=== PATIENT | female | born 1955 | race Caucasian/White ===

== ENCOUNTER 2020-07-30 06:54 | Outpatient (CLI) | payer MEDICARE, SELFPAY ==
--- NOTE | 2020-07-30 07:22 | ECG_ITS ---
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 Baseline heart rate was 118 beats per minute. Baseline blood pressure was 187/111 millimeters of mercury. Target heart rate was 154 beats per minute. Maximum heart rate achieved was 161, which was 104 % of the target heart rate. Maximum blood pressure was 222/120 millimeters of mercury. Total exercise time was 4 minutes. Maximum METs achieved was 7, maximum VO2 was 24.5. The reason for ending the test was maximum effort achieved. The patient complained of shortness of breath during the stress test, which then resolved at the end of the test. ELECTROCARDIOGRAM: BASELINE: Showed sinus tachycardia, normal axis, no significant ST-T changes at the baseline noted. EXERCISE: At the peak exercise level, no significant ST-T changes suggestive of ischemia noted. RECOVERY: During the recovery period, heart rate dropped appropriately. No significant ST-T changes in the recovery suggestive of ischemia noted. CONCLUSION: 1. Exercise capacity poor. 2. Heart rate response was tachycardic. 3. Blood pressure response was hypertensive. 4. Symptoms not suggestive of ischemia. 5. Electrocardiogram portion of the stress test was not suggestive of ischemia. 6. Nuclear scan will be documented separately. Electronically Signed On 07-31-2020 15:48:00 BEEF GRINDER by TASIA AVILA [id number]
--- NOTE | 2020-07-30 07:23 | NMCV_ITS ---
NM pierce perf SPECT r/s* [id number] Michelle Leon Age: 64 Gender: F : 1955 Exam Date: 07/30/2020 08:08 Ordering Phys: Poornima Salazar MD Technologist: CHANELLE Mosqueda Exam Location: [facility] Indications: CHEST PAIN STRESS TEST Please see separate stress test report in [facility] for full findings IMAGE PROTOCOL Rest/Stress 1 Exercise Day Radiopharmaceutical Dose (mCi) Administration Site Administered by Rest: Tc-99m 10.7 IV CHANELLE Nicole Sestamibi Stress:Tc-99m 32.7 IV CHANELLE Mosqueda Sestamibi Rest: 30-Jul-2020 60 Discovery 630 Stress: 30-Jul-2020 15 Discovery 630 Radiopharmaceutical was injected at 98 % maximum heart rate. Images obtained in supine and prone position. SPECT RESULTS Technical Quality: Excellent Raw Data Analysis: Normal Image Corrections: No attenuation or motion correction applied Summed Stress Score: 17 Summed Rest Score: 7 Summed Difference Score: 10 PERFUSION FINDINGS Large area of patchy reduced tracer uptake noted in basal to distal inferior, inferoseptal and mid to distal anterior wall on both rest and stress images surrounded by medium-sized area of severe reversibility in mid to distal anterior and distal inferoapical wall suggestive of ischemia. FUNCTIONAL RESULTS (calculated via Gated SPECT) Stress Image LV EF (%): 57 Stress EDV (mL):68 TID: 1.16 Stress ESV (mL):29 Rest Image LV EF (%): 57 FUNCTIONAL FINDINGS: Mid to distal anterior apical and septal wall akinesis IMPRESSIONS Medium-sized area of severe ischemia noted in mid to distal anterior and anteroseptal wall suggestive of possible lesion in mid LAD territory.TID ratio is elevated which could be secondary to left ventricle hypertrophy/subendocardial ischemia however multivessel coronary artery disease is a possibility. EKG segment will be documented separately. Result conveyed to Dr. Poornima Salazar. Jose A Singh MD (Electronically Signed) Final Date: 30 July 2020 19:19 S
[2020-07-30 07:25] VITALS: BMI 19.1
[2020-07-30 09:57] VITALS: BP 180/118; PULSE 106
== END 2020-07-30 06:55 | disposition home or self-care (01) ==
PROVIDERS: PCP Family Medicine; Visit Provider Family Medicine
DX: R07.9 Chest pain, unspecified (principal); I25.9 Chronic ischemic heart disease, unspecified
CPT/HCPCS: 78452; 93017; A9500

== ENCOUNTER → 2020-08-06 14:16 | Outpatient (BNVA) | payer MEDICARE, SELFPAY | PROVIDERS: PCP Family Medicine; Visit Provider Internal Medicine Cardiovascular Disease | DX: I10 Essential (primary) hypertension (principal); Z01.812 Encounter for preprocedural laboratory examination | CPT/HCPCS: 80048; 85025; 85610; 87635 ==

== ENCOUNTER 2020-08-12 12:57 | Inpatient (IN) | payer MEDICARE, SELFPAY ==
--- NOTE | 2020-08-11 09:55 | PC.NURSE ---
pt states she quite taking isosorbide mononitrate after a severe headache per dr orders.
--- NOTE | 2020-08-11 10:43 | PC.NURSE ---
verbal order to infuse 300mls prior to procedure.
[2020-08-11 10:44] VITALS: BMI 18.8
[2020-08-12] VITALS (24 sets, daily range): BP systolic 136–198; BP diastolic 77–115; PULSE 65–88; RESP 3–23; TEMP 36.6; O2SAT 94–100
--- NOTE | 2020-08-12 07:30 | XACV_ITS ---
Ht: 165 cm Wt: 51 kg BSA: 1.53 m2 Gender: Female : 1955 Exam Priority: Routine Procedure(s): Procedure Description: Diagnostic procedure Procedure Description: Left Heart Catheterization Procedure Description: Left ventriculography Diagnostic Cath Status: Elective Diagnostic Findings * LM has 0% stenosis. * RCA has 0% stenosis. * pLAD to mLAD: Severe 95% stenosis, JADYN: 2 flow. * 1st Diag: Severe 90% stenosis, JADYN: 3 flow. * mCIRC to dCIRC: Mild 30% stenosis, JADYN: 3 flow. * Ramus: Moderate 70% stenosis, JADYN: 3 flow. * Coronary angiography shows left dominance. Conclusions 1. There is severe coronary artery disease with three vessel disease. 2. The apex, mid posterior, mid septum, anterolateral, mid inferior goncalves are hypokinetic. 3. All other visualized goncalves normal. 4. Mildly depressed left ventricular systolic function. Ejection fraction of 50%. Recommendations * 1-Return to ICU for close monitoring and routine PCI care 2-Start IV heparin drip as per ACS protocol 3-No P2y12 inhibitor for possible CABG 4-Statin with LDL goal of 70 mg/dl, aspirin 81 mg p.o. daily for life long 5-CT surgery consults for CABG 6-Optimal medical management for severe CAD 7-Follow up with Dr. Singh in four weeks and primary care physician as scheduled. Diagnostic RX Recommendation: CABG LV EDP: 21 mmHg Ventriculography Ejection Fraction: 50.0 % Left Ventriculography Findings: * Mildly depressed LV function 50%. Pressures Phase:Rest AO : 135 / 84 ( 105 ) @ 3:10:00 AM 134 / 74 ( 103 ) @ 3:10:00 AM 158 / 89 ( 121 ) @ 3:21:00 AM 157 / 89 ( 121 ) @ 3:21:00 AM LV : 136 / -17 / @ 3:10:00 AM 138 / -15 / @ 3:10:00 AM 141 / 2 / @ 3:20:00 AM 142 / 1 / @ 3:20:00 AM 161 / -4 / @ 3:21:00 AM 159 / -5 / @ 3:21:00 AM Valves Phase:DefaultPhase AV : 1.0 @ 9:29:42 AM 1.0 @ 9:29:42 AM AV Mean Gradient: 0.0 @ 9:29:42 AM Clinical Evaluation EBL: 5mL-10mL Procedural Details Procedure Consent Obtained. Admit Source: Out Patient. Pre-Procedure Time Out. Identified patient by full name and date of as verbalized by the patient/guarantor. Does the consent match the physician's order: Yes. Accurate & Complete Informed Consent: Yes. Inpatient/Outpatient History & Physical on Chart: Yes. If H&P is completed, is and addenduem needed: N/A; If yes, is the addendum complete: N/A. Visualize and Verify Site with Patient/Guarantor: N/A. Relevant Radiology Images available: N/A. Pre-op teaching completed and patient verbalized understanding. The risks, benefits, and alternatives of sedation and/or procedure were discussed by physician. The patient agrees to continue. Procedure started. Correct patient, site and procedure confirmed by cath team. PERRLA. Strong, equal hand materials handler bilaterally. Lungs clear x 5 lobes. IV Site on Arrival: 20 gauge in the left anticubital. IV Fluids: 0.9% NaCl at KVO. 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 Pre Procedural Pulses: bilateral dorsalis pedis was 3+. Pre Procedural Pulses: bilateral posterior tibial was 2+. Pre Procedural Pulses: bilateral radial was 3+. Oxygen started at 2liters/min via nasal canula. bilateral groins was prepped with chloroprep then draped in the usual sterile fashion. Physician notified. Baseline sample Acquired. HR: 108 BPM. Physician arrived. Physician scrubbed in. Immediate Pre-Procedure Time Out. Correct Patient: Yes; Correct Procedure: Yes; Correct Site: Yes; Correct Patient Position: Yes; Correct Supplies: Yes; Dried Flammable Prep: Yes; Blood Products Available: N/A;. Lidocaine 1% infiltrated to the right radial. Arterial access obtained. A [address] st helenian TIG catheter in over wire. EDP Sample taken: LV 136/-18,6; HR: 75 BPM; SpO2: 97%. Pullback taken: LV 138/-16,7; AO 135/84(105); Mean: 14mmHg, Peak to Peak: 4mmHg, SEP: 6sec/min; HR: 78 BPM; SpO2: 97%. Multiple views taken of left coronary artery. Catheter redirected to the RCA. Multiple views taken of right coronary artery. Catheter out. Dr. Solano notified per Dr. Singh. A [address] st helenian Angled Pig catheter in over wire. EDP Sample taken: LV 141/2,21; HR: 76 BPM; SpO2: 97%. LV EDP: 21. LV gram performed in GHOTRA @ 10 mL/second for a total of 30 mL. EDP Sample taken: LV 161/-5,21; HR: 83 BPM; SpO2: 98%. Pullback taken: LV 159/-6,21; AO 158/89(121); Mean: 0mmHg, Peak to Peak: 1mmHg, SEP: 21sec/min; HR: 80 BPM; SpO2: 98%. TR band placed. Hemostasis obtained. Post Procedure: Pulses reassessed and unchanged. PERRLA. Strong, equal hand materials handler bilaterally. No VTE prophylaxis required. Medication's Wasted: Heparin = 1000 units. Medication's Wasted: Lidocaine 1% = 16 mL. Medication's Wasted: Nitro = 49.8 mg. Medication's Wasted: Other = fentanyl 50 mg. Total IV fluids: 75 mL. Contrast type used: Omnipaque 300 mgI/mL, 500 mL bottle. Contrast Material : Omnipaque 94 ml. A TR Band was successful obtaining hemostatsis at the Right Radial artery insertion site. Complications: none. [facility] Clinical Fraility Score: 3: Managing Well. 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 Chest Pain Symptom Assessment: Typical Angina Symptoms. Cardiovascular Instability: No,. Post-op diagnosis: severe multivessel CAD. Estimated blood loss: 5mL-10mL. Procedure completed. Patient transferred by wheelchair to ICU. Vital chart was stopped. Access Site Site: Right Radial artery Sheath Size: 6 Fr Hemostasis Method: TR Band Hemostasis Success: Successful Procedure Medications Start: 8:56 AM Stop: 8:56 AM Medication: Versed Amount: 1 mg Route: I.V. Start: 8:56 AM Stop: 8:56 AM Medication: Fentanyl Amount: 50 mcg Route: I.V. Start: 9:07 AM Stop: 9:07 AM Medication: Nitrogylcerin Amount: 200 mcg Route: I.A. Start: 9:09 AM Stop: 9:09 AM Medication: Heparin Amount: 5000 units Route: I.V. I, the attending physician, have reviewed and verified all procedure medications. Yes, all medications given per verbal order History/Risk Factors Hypertension: Yes Renal Disease: No Tobacco Use: Never Report Signatures Finalized by Jose A Singh MD on 08/12/2020 10:15 AM
[2020-08-12] MEDS: diphenhydrAMINE 50 mg Capsule PO (08:04)
--- NOTE | 2020-08-12 08:58 | W.PM.OPSUD ---
Surgery/Procedure H&P Update DATE OF PROCEDURE: August 12, 2020 DATE H&P PERFORMED: 08/06/20 H&P UPDATE INFORMATION: I have reviewed H&P completed within last 30 days, I have examined patient prior to procedure and No changes to prior documentation PREOP DIAGNOSIS: Abnormal stress test, chest pain PLANNED PROCEDURE: Operation Date: 08/12/20 08:30 Proposed Procedures p Cardiac Catheterization(Not Applicable) - Jose A Singh MD PATIENT REASSESSED PRIOR TO SEDATION, WITH NO CHANGE NOTED: Yes PHYSICAL EXAM: alert, oriented x 3 and clear to auscultation bilaterally AIRWAY EVAL/ANESTHESIA PLAN: ASA II, Risks, benefits & alternatives of sedation and/or procedure discussed and Patient agrees to continue as planned
--- NOTE | 2020-08-12 10:18 | PM.HP ---
Providers/Chief Complaint Primary Care Provider: Poornima Salazar MD Chief Complaint: cardiac catherization History of Present Illness Michelle Leon is a 64 year old female non-smoker nondiabetic with history of rheumatoid arthritis on prednisone and history of uncontrolled hypertension for worsening of shortness of breath fatigue and exertional chest pain underwent nuclear stress test suggestive of severe ischemia in the LAD territory saw me in the clinic. She was started on beta-wyatt isosorbide mononitrate aspirin and statin. Today she underwent left heart cath suggestive of severe bifurcating proximal LAD disease with JADYN II flow in the LAD while 90% ostial diagonal lesion and moderate size and caliber vessel. She has moderate size and caliber ramus intermedius with proximal 70% stenosis. Left circumflex is moderate size and caliber dominant vessel without significant stenosis. RCA is nondominant and free of disease. Left ventricle end-diastolic pressure was mildly elevated at 21 mmHg. There was no gradient across the aortic valve. Left ventricle function appeared to be mildly depressed 50% with anterior and lateral wall hypokinesis. Due to bifurcating nature of the proximal LAD disease and diagonal branch along with moderate lesion in the proximal ramus CABG would be the best option. Patient has been admitted to stepdown unit with overflow in the ICU. Dr. Solano our CT surgeon will be requested to consult the patient. I have discussed my finding and recommendation with patient and her daughter. Medications/Allergies Home Medications Medication Instructions Recorded Confirmed Last Taken Type amlodipine 2.5 mg tablet 2.5 mg PO DAILY #90 tab 08/06/20 08/12/20 08/12/20 05:00 Rx aspirin 81 mg tablet,delayed 81 mg PO DAILY #90 tab 08/06/20 08/12/20 08/11/20 20:00 Rx release levothyroxine 112 mcg tablet 112 mcg PO DAILY 08/06/20 08/12/20 08/11/20 07:00 History metoprolol succinate 25 mg 12.5 mg PO DAILY #45 tab 08/06/20 08/12/20 08/11/20 05:00 Rx tablet,extended release 24 hr nitroglycerin 0.4 mg sublingual 0.4 mg SUBLINGUAL Q5M PRN #25 tab 08/06/20 08/11/20 Unknown Rx tablet oxycodone-acetaminophen 5 mg-325 1 tab PO Q8H PRN 08/06/20 08/11/20 Unknown History mg tablet prednisone 1 mg tablet 4 mg PO DAILY tab 08/06/20 08/12/20 08/11/20 20:00 History Vitamin D3 50,000 unit PO DAILY 08/11/20 08/12/20 08/12/20 05:00 History Allergies Allergy/AdvReac Type Severity Reaction Status Date / Time clarithromycin [From Biaxin] Allergy unknown Verified 08/04/20 15:44 levofloxacin [From Levaquin] Allergy unknown Verified 08/04/20 15:44 Penicillins Allergy unknown Verified 08/04/20 15:44 Sulfa (Sulfonamide Allergy unknown Verified 08/04/20 15:44 Antibiotics) PFSH Acute PFSH: Medical History Uncontrolled hypertension Family History Sister Rheumatoid arthritis Social History Smoking and tobacco status: never smoked Vitals/I&O/Wt Weight last 48 hrs Weight 113 lb Physical Exam Narrative: EXAM NARRATIVE: GENERAL: Patient is alert, awake and oriented x3. NECK: No jugular vein distension. HEENT: No cyanosis. No icterus. No pallor. HEART: Regular S1 and S2. No murmur, rub or gallop. LUNGS: Clear to auscultate bilaterally. ABDOMEN: Soft, nontender and nondistended. Positive bowel sounds. No guarding, rebound or tenderness. CENTRAL NERVOUS SYSTEM: Grossly nonfocal. EXTREMITIES: Lower extremities without edema bilaterally. Const: COMMON NORMALS: alert Resp: COMMON NORMALS: clear to auscultation bilaterally AUSCULTATION: clear to auscultation bilaterally Neuro: SENSORIUM/ORIENTATION: Yes alert A&P Assessment and plan (1) Coronary arteriosclerosis in [place] artery: As defined above patient has multivessel severe coronary artery disease, we have requested consult for CT surgery. Further plan will be advised. Continue aspirin beta-wyatt nitroglycerin statin and heparin. Echocardiogram will be obtained. Further plan will be advised after Dr. Solano's consult. Status: Acute (2) Uncontrolled hypertension: Currently well controlled. 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
--- NOTE | 2020-08-12 10:54 | USCV_ITS ---
Michelle Leon Age: 64 Gender: F : 1955 Exam Date: 08/12/2020 11:38 Ordering Phys: Oswald Solano MD Technologist: Andie Senior Exam Location: [facility] [place] Indication: CABG pre op RIGHT LEFT LOWER EXTREMITY Diameter Diameter (cm) (cm) 0.26 High Thigh 0.28 0.28 Mid Thigh 0.21 0.23 Above Knee 0.22 0.25 Below Knee 0.21 0.08 Mid Calf 0.13 0.10 Ankle 0.23 RIGHT LEFT Findings Good straight veins for harvest bilat Veins are easily compressible No evidence of thrombosis Conclusions Patent veins bilaterally with no evidence of thrombosis. Relatively small caliber veins bilaterally. The greater saphenous veins measured anywhere from 0.21 to 0.28 cm bilaterally at the above-knee levels. The dimensions as mentioned above Dr Francisco Vasquez MD [facility] (Electronically Signed) Final Date: 13 August 2020 09:17 S
--- NOTE | 2020-08-12 10:59 | P.CONIM_ITS ---
Providers/Reason For Consult Consulting Physican/Specialty*: Dr. Solano, cardiothoracic surgery Reason for Consult*: Severe two-vessel coronary artery disease Requesting Physcian: Dr. Singh Attending Physician: Jose A Singh MD Primary Care Provider: Poornima Salazar MD History of Present Illness History of Present Illness Michelle Leon is a 64 year old female whom I have been consulted on by Dr. Singh, having just completed left heart catheterization for suspected coronary artery disease. She had been referred to Dr. Singh from her primary care provider, Dr. Poornima Salazar with a progressive history of substernal chest d iscomfort associate with exertion, highly suggestive of coronary ischemia and angina. Dr. Singh saw her originally in consultation on August 06. She completed her sestamibi stress study on July 30. The study revealed poor exercise capacity. Nuclear images returned severely positive in the LAD distribution. She is also noted to be hypertensive and evaluation by Dr. Singh. No history for tobacco use. She has had rheumatoid arthritis for nearly a decade. Currently is on 4 mg of prednisone daily, having originally been on 5 mg. This is managed by her personal physician, Dr. Poornima Salazar. Left heart catheterization performed earlier today by Dr. Singh revealed a complex bifurcating LAD lesion as well as proximal lesion of the ramus intermedius branch. Noncritical disease of the proximal circumflex artery and nonocclusive disease of the RCA. Mildly depressed LV function at 50% with anterior lateral wall hypokinesia. Due to the complexity of the LAD lesion, Dr. Singh feels that she should be evaluated to consider surgical revascularization. Past history significant for rheumatoid arthritis and she is on prednisone, 4 mg daily. She also has uncontrolled hypertension. She has been started on a beta- wyatt as well as aspirin and statin. She has several allergies including clarithromycin, levofloxacin, penicillins, and sulfa. I have conferred with my colleague, Dr. Singh by phone. I have personally reviewed the left heart catheterization and echocardiographic studies. Bilateral lower extremity greater saphenous vein mapping has been performed with results pending. Review of Systems Const: Reports: fatigue; Denies: fever(s), chills, change in appetite, change in weight or night sweats Eyes: Denies: change in vision or blurry vision ENMT: Denies: odynophagia or hoarseness Card: Reports: chest pain, palpitations and dyspnea on exertion Resp: Denies: dyspnea or productive cough GI: Denies: abdominal pain, nausea, vomiting, dysphagia, heartburn or change in bowel habits : Denies: dysuria, urinary frequency, urinary urgency or urinary hesitancy Musc: Denies: extremity pain or extremity swelling Skin/Breast: Denies: rash Neuro: Denies: headache(s), numbness in extremities, weakness in extremities or sensory changes Psych: Denies: anxiety, depression or change in appetite Endo: Denies: polyuria, polydipsia or cold intolerance Yevgeniy/Lymph: Denies: easy bruising, easy bleeding, petechiae or enlarged lymph nodes Meds/Allergies Home Medications and Allergies Home Medications Medication Instructions Recorded Confirmed Last Taken Type amlodipine 2.5 mg tablet 2.5 mg PO DAILY #90 tab 08/06/20 08/12/20 08/12/20 05:00 Rx aspirin 81 mg tablet,delayed 81 mg PO DAILY #90 tab 08/06/20 08/12/20 08/11/20 20:00 Rx release levothyroxine 112 mcg tablet 112 mcg PO DAILY 08/06/20 08/12/20 08/11/20 07:00 History metoprolol succinate 25 mg 12.5 mg PO DAILY #45 tab 08/06/20 08/12/20 08/11/20 05:00 Rx tablet,extended release 24 hr nitroglycerin 0.4 mg sublingual 0.4 mg SUBLINGUAL Q5M PRN #25 tab 08/06/20 08/11/20 Unknown Rx tablet oxycodone-acetaminophen 5 mg-325 1 tab PO Q8H PRN 08/06/20 08/11/20 Unknown History mg tablet prednisone 1 mg tablet 4 mg PO DAILY tab 08/06/20 08/12/20 08/11/20 20:00 History Vitamin D3 50,000 unit PO DAILY 08/11/20 08/12/20 08/12/20 05:00 History Allergies Allergy/AdvReac Type Severity Reaction Status Date / Time clarithromycin [From Biaxin] Allergy unknown Verified 08/04/20 15:44 levofloxacin [From Levaquin] Allergy unknown Verified 08/04/20 15:44 Penicillins Allergy unknown Verified 08/04/20 15:44 Sulfa (Sulfonamide Allergy unknown Verified 08/04/20 15:44 Antibiotics) PFSH Acute PFSH: Medical History Uncontrolled hypertension Family History Sister Rheumatoid arthritis Social History Smoking and tobacco status: never smoked Vitals/I&O/Wt Weight last 48 hrs Weight 113 lb Physical Exam Const: COMMON NORMALS: patient oriented x3 and alert ORIENTATION/CONSCIOUSNESS: Yes oriented to person, Yes oriented to place and Yes oriented to time HENMT: COMMON NORMALS: normocephalic HEAD & SCALP: normocephalic and cranial bruits Neck/C-Spine: COMMON NORMALS: full ROM, supple, no JVD and No carotid bruits GENERAL: Yes trachea midline CERVICAL SPINE: Yes cervical ROM normal Chest: COMMONS NORMALS: normal inspection of the chest and normal palpation of entire chest wall Resp: COMMON NORMALS: normal respiratory effort, No use of accessory muscles, clear to auscultation bilaterally and percussion normal EFFORT & INSPECTION: Yes able to speak in complete sentences and Yes symmetric chest movement AUSCULTATION: clear to auscultation bilaterally PERCUSSION: percussion normal Cardio: COMMON NORMALS: no JVD, regular rate, regular rhythm, S1 normal heart sound present, S2 normal heart sound present, No gallops present (Cardio), No murmurs present (Cardio) and No rub (Cardio) JUGULAR VENOUS DISTENTION: no JVD RATE: regular rate RHYTHM: regular rhythm HEART SOUNDS: S1 normal heart sound present and S2 normal heart sound present PERIPHERAL PULSES: radial pulses present positive bilateral 2+ Extremity: COMMON NORMALS: no clubbing, cyanosis or edema Neuro: COMMON NORMALS: patient oriented x3, no focal motor deficits and no sensory deficits noted SENSORIUM/ORIENTATION: Yes alert, Yes oriented to person, Yes oriented to place and Yes oriented to time GAIT: Yes Normal gait present A&P Assessment and plan (1) Coronary arteriosclerosis in [place] artery: A pleasant, petite, 64-year-old female with complex LAD diagonal disease as well as disease proximally of a prominent ramus branch. LV function mildly reduced at 45 to 50%. Anterior lateral wall hypokinesia. Dr. Singh has discussed with Ms. Leon results of her left heart catheterization and the recommendation to consider surgical revascularization related to the complexity of her LAD/diagonal stenosis. I have reviewed with her the details and conduct of coronary bypass grafting as well as the potential risk. Increased risk profile related to her chronic steroid use in relation to wound healing or infection was very frankly discussed. She appears to have a clear understanding of this and is agreeable to proceed with planned CABG. Details and risks of CABG were carefully and frankly reviewed. Risks discussed include the possibility of , stroke, heart attack, major bleeding possibly requiring the need to reopen chest, infection, pneumonia, organ failure, failure to benefit, early closure of the bypass grafts, inability to complete the procedure, prolonged hospitalization, blood clots to lungs or other organs, need for further interventions, continued pain after surgery, need for future surgery, and possible long-term bleeding risk secondary to medication requirements. All questions were answered. She stated understanding. We will proceed with routine preoperative evaluation as well as patient and family education with both written and video materials. We will tentatively plan for CABG on August 14. I will keep in close contact with my colleague, Dr. Singh, throughout the perioperative. I greatly thank him for his assistance with her care. Status: Acute Consult Attestations Medical Necessity Statement: Severe, complex, two-vessel coronary artery disease with unstable angina Time Spent in Patient Care: Greater than 35 minutes Coding Level of Care Code New Pt Acute Field Operations Manager for [place] Fwd Patient Type New History Comprehensive Exam Comprehensive Medical Decision Making Moderate Complexity Diagnoses Coronary arteriosclerosis in [place] artery I25.10 Time Spent (min) 45
--- NOTE | 2020-08-12 11:03 | PC.NURSE ---
TR Band 2ml air removed from TR band at this time per protocol. No s/s of bleeding or hematoma noted, radial pulse present. No c/o pain. No needs voiced. Will monitor.
--- NOTE | 2020-08-12 12:02 | PC.NURSE ---
Hypertension Dr Singh notified of hypertension, orders received to start Nitro gtt and titrate for BP less than 160 systolic.
--- NOTE | 2020-08-12 12:16 | USCV_ITS ---
Michelle Leon Age: 64 Gender: F : 1955 Exam Date: 08/12/2020 10:22 Ordering Phys: Jose A Singh MD ([email or web address]) Technologist: Megha Wei [place] [facility] [place]: stemi BP: 166 / 96 HR: 71 Rhythm: Sinus Technical Quality: Adequate MEASUREMENTS (Male / Female) Normal Values 2D ECHO LV Diastolic Diameter PLAX 3.1 cm 4.2 - 5.9 / 3.9 - 5.3 cm LV Systolic Diameter PLAX 1.7 cm LV Chamber Size 2.8 cm IVS Diastolic Thickness 1.2 cm 0.6 - 1.0 / 0.6 - 0.9 cm IVS Systolic Thickness 1.4 cm LVPW Diastolic Thickness 1.6 cm 0.6 - 1.0 / 0.6 - 0.9 cm LVPW Systolic Thickness 1.7 cm RV Chamber Size 2.6 cm LVOT Diameter 2.0 cm LV Ejection Fraction 2C AL 35.5 % LA Diameter 2.2 cm LA Width 3.4 cm LA Height 2.4 cm RA Width 3.4 cm RA Height 3.3 cm Aorta at Sinotubular Diameter 2.1 cm M-MODE LV Diastolic Diameter MM 3.5 cm 4.2 - 5.9 / 3.9 - 5.3 cm LV Systolic Diameter MM 2.0 cm LV Ejection Fraction MM Teich 74.6 % IVS Diastolic Thickness MM 1.2 cm 0.6 - 1.0 / 0.6 - 0.9 cm IVS Systolic Thickness MM 1.4 cm LVPW Diastolic Thickness MM 0.9 cm 0.6 - 1.0 / 0.6 - 0.9 cm LVPW Systolic Thickness MM 1.3 cm Aortic Annulus Diameter 3.2 cm LA Ao Ratio MM 0.9 MV E Point Septal Separation 0.9 cm DOPPLER AV Peak Velocity 92.0 cm/s LVOT Peak Velocity 89.0 cm/s AV Area Cont Eq vti 3.1 cm squared AV Area Cont Eq pk 3.1 cm squared MV Area PHT 4.0 cm squared Mitral E to A Ratio 0.8 MV E' Velocity 34.0 cm/s Mitral E to MV E' Ratio 10.9 Mitral E to LV E' Lateral Ratio 10.2 Mitral E to LV E' Septal Ratio 11.9 TR Peak Velocity 246.0 cm/s TR Peak Gradient 24.2 mmHg TV Peak E Velocity 48.0 cm/s Right Atrial Pressure 3.0 mmHg Pulmonary Artery Systolic Pressu 27.2 mmHg PV Peak Velocity 54.0 cm/s RV Acceleration Time 0.1 s RV Ejection Time 0.3 s RV AcT/ET 0.5 FINDINGS Left Ventricle Normal left ventricular cavity size. Mildly decreased left ventricular systolic function. Left ventricular ejection fraction is estimated at 50 %. Global left ventricular hypokinesis. Grade I/IV diastolic dysfunction (abnormal relaxation filling pattern), normal to mildly elevated filling pressures. Right Ventricle The right ventricle is normal in size and function. Right Atrium The right atrium is normal in size. Left Atrium The left atrium is normal in size. Mitral Valve Structurally normal mitral valve without significant stenosis or prolapse. There is no mitral regurgitation. Aortic Valve Aortic valve sclerosis without stenosis or regurgitation. Tricuspid Valve Structurally normal tricuspid valve without significant stenosis or regurgitation. Pulmonary artery systolic pressure is normal. Pulmonic Valve Structurally normal pulmonic valve without significant stenosis. There is no pulmonic regurgitation. Pericardium Normal pericardium without effusion. Aorta Normal ascending aorta dimension. CONCLUSIONS 1-Normal left ventricular cavity size. Mildly decreased left ventricular systolic function. Left ventricular ejection fraction is estimated at 50 %. Global left ventricular hypokinesis. Grade I/IV diastolic dysfunction (abnormal relaxation filling pattern), normal to mildly elevated filling pressures. 2-There is no pericardial effusion. 3-Pulmonary artery systolic pressure is within normal limits. 4-Right atrial pressure is around 5 mm of mercury. 5-There are no prior echocardiogram studies to compare. Jose A Singh MD (Electronically Signed) Final Date: 13 August 2020 18:05 S
--- NOTE | 2020-08-12 12:18 | XR_ITS ---
WS: [id number] XR chest 2V* [id number] REASON FOR EXAM: preop cabg FINDINGS: The heart and mediastinum are within normal limits. Calcified granulomatous disease is seen in both hemithoraces with significant amount of reticular nod ular changes in both lung apices. No active pulmonary parenchymal or pleural disease is noted. Bony thorax is unremarkable. XR/XR chest 2V* [id number] IMPRESSION: Extensive granulomatous changes in the lung apices. No active disease.
[2020-08-12] MEDS: nitroglycerin drip 50 MG/250 ML PREMIX IV ×2 (12:32→17:23)
--- NOTE | 2020-08-12 12:35 | PC.NURSE ---
Report called to CSU REport called to CSU at this time, all questions answered. Dr Romero in to talk with pt about scheduled CABG on .
--- NOTE | 2020-08-12 12:45 | PC.NURSE ---
Transferred to First Floor Pt transferred to first floor at this time.
--- NOTE | 2020-08-12 14:15 | PC.NURSE ---
TR band removal complete per protocol no hematoma noted patient tolerated well
--- NOTE | 2020-08-12 14:17 | PC.NURSE ---
Reported to Dr holland patient blood pressure at this time and further instructions for nitro gtt instructions given to give metoprolol 12.5 po now lisinopril 2.5 po now and wait 10min and stop nitro drip.
[2020-08-12] MEDS: metoprolol succinate ER (24 HR) 25 mg Tablet 12.5 MG PO (14:25)
[2020-08-12] MEDS: lisinopril 2.5 mg Tablet PO (14:25)
[2020-08-12] MEDS: chlorhexidine gluconate 4% Btl 118 mL 1 APPLIC TOPICAL (14:31)
--- NOTE | 2020-08-12 14:40 | PC.NURSE ---
patient reports she took her medications at home prior to admission.
--- NOTE | 2020-08-12 15:20 | PC.OT ---
Pre op CABG education provided. Pt attentive and receiving discussion and written handouts outlining OT services, energy conservation and pursed lip breathing techniques.Pt displays fair understanding of information provided at this time.
[2020-08-12] MEDS: chlorhexidine gluconate 0.12% Btl 473 mL 15 ML MUCOUS MEM (17:24)
[2020-08-12] MEDS: mupirocin oint 22 gm 1 APPLIC NASAL (17:24)
--- NOTE | 2020-08-12 18:01 | PC.PT ---
pt instructed by OT in precautions and plan of care post CABG. will see post surgery.
[2020-08-13] VITALS (19 sets, daily range): BP systolic 88–159; BP diastolic 58–110; PULSE 63–113; RESP 16–26; TEMP 36.4–36.9; O2SAT 93–98
--- NOTE | 2020-08-13 04:00 | PC.NURSE ---
NURSING NOTE: SHIFT SUMMARY; PT ALERT AND ORIENTED X4; MOVES ALL EXTREMITIES AND FOLLOWS COMMANDS. DENIES PAIN OR CHEST DISCOMFORT THIS SHIFT. RESTING QUIETLY WITH EYES CLOSED, RESP EVEN AND NON LABORED . ALL VS AND ASSESSMENTS CHARTED. NO DISTRESS NOTED AT THIS TIME. UNABLE TO GET CONSENT FOR CABG SIGNED THIS SHIFT. PT STATED WOULD MAKE FINAL DECISION TODAY.
[2020-08-13 05:41] LABS: Basophils # 0.1 10^3/uL (0.0-0.1); Basophils % 0.9 %; Eosinophils # 0.2 10^3/uL (0.0-0.8); Eosinophils % 3.1 %; Hematocrit 44.9 % (37.0-47.0); Hemoglobin 14.9 g/dL (11.5-15.3); Lymphocytes # 1.3 10^3/uL (0.8-4.8); Lymphocytes % 16.8 %; Mean Corpuscular HGB Conc 33.2 g/dL (30.0-36.0); Mean Corpuscular Volume 84.4 fL (81-99); Mean Platelet Volume 10.7 fL (7.4-10.4); Monocytes # 0.9 10^3/uL (0.2-0.9); Monocytes % 11.1 %; Neutrophils # 5.23 10^3/uL (1.8-7.7); Neutrophils % 67.3 %; Nucleated Red Blood Cells % 0 %; Platelet Count 217 10^3/cmm (130-400); Red Blood Count 5.32 10^6/uL (4.1-5.3); Red Cell Distribution Width 13.2 % (12.1-15.1); White Blood Count 7.8 10^3/uL (4.0-10.0)
[2020-08-13 06:00] LABS: Blood Urea Nitrogen 21 mg/dL (8-23); Calcium 9.7 mg/dL (8.5-10.5); Carbon Dioxide 24 mmol/L (22-29); Chloride 102 mmol/L (98-107); Glomerular Filtration Rate 49.7 mL/min (90-130); Glucose 114 mg/dL (65-115); Osmolality Calculated 284 mOsm/kg (285-295); Sodium 135 mmol/L (136-145)
[2020-08-13 06:02] LABS: Anion Gap 12.9 (5-19); Potassium 3.9 mmol/L (3.5-5.1)
[2020-08-13 06:12] LABS: Alanine Aminotransferase 9 U/L (0-33); Albumin Level 3.8 g/dL (3.5-5.2); Alkaline Phosphatase 81 IU/L (35-105); Blood Urea Nitrogen 22 mg/dL (8-23); Calcium 9.7 mg/dL (8.5-10.5); Carbon Dioxide 24 mmol/L (22-29); Chloride 102 mmol/L (98-107); Glomerular Filtration Rate 49.7 mL/min (90-130); Glucose 111 mg/dL (65-115); Osmolality Calculated 286 mOsm/kg (285-295); Sodium 136 mmol/L (136-145); Thyroid Stimulating Hormone 5.99 uIU/mL (0.27-4.20); Total Bilirubin 0.6 mg/dL (0.15-1.2); Total Protein 5.8 g/dL (6.6-8.7)
[2020-08-13 06:22] LABS: Anion Gap 14.1 (5-19); Aspartate Amino Transferase 15 U/L (0-32); Potassium 4.1 mmol/L (3.5-5.1)
[2020-08-13 06:27] LABS: INR 1.08 (0.8-1.2); Partial Thromboplastin Time 33.2 SECONDS (23.9-36.7)
--- NOTE | 2020-08-13 06:42 | PM.PN ---
Subjective Subjective: Interval history: Uneventful night. No events reported by nursing service. Remains pain-free Vitals/I&O/Wt Last Vital Signs Temp 98.5 F 08/13/20 04:00 Pulse 72 08/13/20 05:54 Resp 17 08/13/20 04:00 BP 146/87 08/13/20 04:00 Pulse Ox 97 08/13/20 04:00 08/12/20 08/12/20 08/13/20 14:59 22:59 06:59 Intake Total 4.025 / 4.025 240 / 244.025 480 / 724.025 Output Total 700 / 700 Balance 4.025 / 4.025 240 / 244.025 -220 / 24.025 Weight last 48 hrs Weight 113 lb Data : 08/13/20 05:06 08/13/20 05:06 A&P Assessment and plan (1) Coronary arteriosclerosis in [place] artery: Patient and family are to confer with Dr. Singh around noon today concerning therapeutic options for coronary obstructive disease. I spoke with him at length yesterday evening concerning surgical options and Dr. Singh will speak further concerning percutaneous options. It appears they are concerned about the extended convalescence related to surgery that would be required. Final determination related to the therapeutic options they prefer will be made after further conversations with my colleague, Dr. Singh. Surgery has been tentatively scheduled for tomorrow, though of course we certainly could standby should intervention be a preferred option for Ms. Leon. Status: Acute Attestations Medical Necessity Statement*: Complex two-vessel coronary artery disease with progressive angina Time Spent in Patient Care: less than 15 minutes Coding Level of Care Code Acute Perfect Bind Machine Operator for [place] Diagnoses Coronary arteriosclerosis in [place] artery I25.10
[2020-08-13 06:48] LABS: Free T4 Free Thyroxine 1.63 ng/dL (0.82-1.77)
--- NOTE | 2020-08-13 08:51 | P.ANESASSM_ITS ---
Pre-Anesthetic Assessment Pre-Anesthetic Assessment: Height/Weight: Height 1.65 m Weight 51.256 kg Temp Pulse Resp BP Pulse Ox 97.6 F 85 17 159/110 93 08/13/20 07:19 08/13/20 07:19 08/13/20 07:19 08/13/20 07:19 08/13/20 07:19 Preop Diagnosis: Abnormal stress test, chest pain Proposed Procedure: Operation Date: 08/12/20 08:30 Proposed Procedures p Cardiac Catheterization(Not Applicable) - Jose A Singh MD Operation Date: 08/14/20 08:00 Proposed Procedures p CABG(Not Applicable) - Oswald Solano MD Was Beta Pau taken within 24 hours: Yes Social: Social History: No alcohol and No tobacco Exam: Pre-Anes Outpt Exam: alert, oriented x 3, clear to auscultation bilaterally and regular rate & rhythm Airway: Submandibular: WNL Cervical ROM: WNL MP: 3 Dentition: Full Pulmonary: Pulmonary: None reported CV/HEM: CV/HEM: CAD Comments: EF 45-50% : : Chronic renal Insufficiency Hepatic: Hepatic: None reported GI: GI: None reported Metabolic: Metabolic: Thyroid Musc/skel: Musc/skel: RA Comments: Chronic steroids Neuropsych: Neuropsych: None reported Anesthetic Plan: ASA status: 4 Anesthesia: General Other: A.line, CVL, JONAH, stress dose steroids Risk of > 500 ml blood loss (7ml/kg in children): Yes, adequate IV access and fluids planned Meds/Allergies Current Medications: Current Medications Generic Name Dose Route Start Last Admin Trade Name Freq PRN Reason Stop Dose Admin Aspirin 81 mg 08/12/20 09:45 08/12/20 14:25 Aspirin 81 Mg Ec Tablet PO Not Given DAILY JLUIS Chlorhexidine Gluc bartolo 15 ml 08/12/20 18:00 08/12/20 17:24 Chlorhexidine Gl uconate 0.12% Btl 473 Ml MUCOUS MEM 15 ml BID JLUIS Administration Chlorhexidine Gluc bartolo 1 applic 08/12/20 11:00 08/12/20 14:31 Chlorhexidine Gl uconate 4% Btl 118 Ml TOPICAL 1 applic DAILY JLUIS Administration Nitroglycerin/Dext bao 50 mg in 250 mls @ 0 mls/hr 08/12/20 12:00 12/08/20 17:[address] ip IV 5 mcg/min .Q0M JLUIS 1.5 mls/hr Administration Protocol Per Protocol Levothyroxine Sodi um 112 mcg 08/12/20 09:45 08/12/20 14:25 Levothyroxine 11 2 Mcg Tablet PO Not Given DAILY JLUIS Metoprolol Succina te 12.5 mg 08/12/20 09:45 08/12/20 14:25 Metoprolol Succi zoe Er (24 Hr) 25 Mg Tablet PO 12.5 mg DAILY JLUIS Administration Mupirocin 1 applic 08/12/20 18:00 08/12/20 17:24 Mupirocin Oint 2 2 Gm NASAL 1 applic BID JLUIS Administration PFSH Anesthesia PFSH: Medical History Uncontrolled hypertension Family History Sister Rheumatoid arthritis Social History Smoking and tobacco status: never smoked Data Anesthesia CBC & Chem 7: 08/13/20 05:06 08/13/20 05:06 Other Labs: Laboratory Results - last 48 hr 08/12/20 08/12/20 08/12/20 05:06 05:06 05:06 WBC RBC Hgb Hct MCV MCH MCHC RDW Plt Count MPV Neut % (Auto) Lymph % (Auto) Jackson % (Auto) Eos % (Auto) Baso % (Auto) Neut # (Auto) Lymph # (Auto) Jackson # (Auto) Eos # (Auto) Baso # (Auto) Nucleated RBC % (auto) Nucleated RBCs # PT 14.40 INR 1.08 APTT 33.2 Sodium 136 Potassium 4.1 Chloride 102 Carbon Dioxide 24 Anion Gap 14.1 BUN 22 Creatinine 1.1 H GFR Calculation 49.7 L Glucose 111 Calculated Osmolality 286 Calcium 9.7 Total Bilirubin 0.6 Direct Bilirubin 0.20 AST 15 ALT 9 Alkaline Phosphatase 81 Total Protein 5.8 L Albumin 3.8 Globulin 2.0 TSH 5.99 H Free T4 1.63 Blood Type B Positive Rho(D) Type Positive Antibody Screen Negative Crossmatch See Detail 08/13/20 08/13/20 05:06 05:06 WBC 7.8 RBC 5.32 H Hgb 14.9 Hct 44.9 MCV 84.4 MCH 28.0 MCHC 33.2 RDW 13.2 Plt Count 217 MPV 10.7 H Neut % (Auto) 67.3 Lymph % (Auto) 16.8 Jackson % (Auto) 11.1 Eos % (Auto) 3.1 Baso % (Auto) 0.9 Neut # (Auto) 5.23 Lymph # (Auto) 1.3 Jackson # (Auto) 0.9 Eos # (Auto) 0.2 Baso # (Auto) 0.1 Nucleated RBC % (auto) 0 Nucleated RBCs # 0.0 PT INR APTT Sodium 135 L Potassium 3.9 Chloride 102 Carbon Dioxide 24 Anion Gap 12.9 BUN 21 Creatinine 1.1 H GFR Calculation 49.7 L Glucose 114 Calculated Osmolality 284 L Calcium 9.7 Total Bilirubin Direct Bilirubin AST ALT Alkaline Phosphatase Total Protein Albumin Globulin TSH Free T4 Blood Type Rho(D) Type Antibody Screen Crossmatch Cardiac Studies: No Data to Display
[2020-08-13] MEDS: metoprolol succinate ER (24 HR) 25 mg Tablet 12.5 MG PO (09:45)
[2020-08-13] MEDS: predniSONE 1 mg Tablet 4 MG PO (09:45)
[2020-08-13] MEDS: aspirin 81 mg EC Tablet PO (09:45)
[2020-08-13] MEDS: amlodipine 5 mg Tablet 2.5 MG PO (09:45)
[2020-08-13] MEDS: chlorhexidine gluconate 4% Btl 118 mL 1 APPLIC TOPICAL (09:46)
[2020-08-13] MEDS: levothyroxine 112 mcg Tablet PO (09:46)
[2020-08-13] MEDS: mupirocin oint 22 gm 1 APPLIC NASAL ×2 (09:46→18:07)
[2020-08-13] MEDS: chlorhexidine gluconate 0.12% Btl 473 mL 15 ML MUCOUS MEM ×2 (09:46→18:06)
--- NOTE | 2020-08-13 15:49 | PM.MISC ---
Miscellaneous Note Purpose of Documentation: Follow-up after Dr. Singh's conversation with family concerning recommendations for surgery. Note: I have spoken with Ms. Leon and her family members concerning the recommendation to consider surgical revascularization for her complex two-vessel coronary artery disease. After his discussion with him, all are in agreement to proceed with plans for CABG tomorrow. I did discuss with Ms. Leon again our recommendations and the rationale. Details and risk of surgery were again carefully reviewed. She appears to have a very clear understanding of this. Our educational materials both written and video have been provided and reviewed. We will plan to proceed tomorrow morning.
--- NOTE | 2020-08-13 19:36 | PC.NURSE ---
Received report from Shanique Nichols RN. Patient resting in bed reading. Discussed procedure scheduled for in the am. Patient verbalized understanding. Denies concerns or questions at this time.
[2020-08-13 19:57] LABS: Add Urine Microscopic? YES; Bilirubin Urine Neg (Negative); Blood Urine 2+ (Negative); Glucose Urine UA Norm (Normal); Ketones Urine Negative (Negative); Leukocyte Esterase Urine Negative (Negative); Nitrate Urine Negative (Negative); Protein Urine Neg (Negative); Specific Gravity, Urine 1.025 (1.005-1.030); Urine Appearance Clear (CLEAR); Urine Color Yellow (Yellow); Urobilinogen Urine Norm (Negative); pH Urine 5 (5-7)
[2020-08-13 19:58] LABS: Add Urine Culture? No; Bacteria Urine 1+ /hpf; Calcium Oxalate Crystals Urine 0-4 /hpf; RBC Urine 0-4 /hpf (0-2); Squamous Epithelial Cell Urine 0-4 /hpf (0-5); WBC Urine 0-4 /hpf (0-5)
--- NOTE | 2020-08-13 20:00 | P.PN_ITS ---
Subjective Subjective: Interval history: Denies any chest pain. Patient is status post left heart cath noted to have bifurcating significant highly calcified stenosis of the LAD and moderate to severe proximal circumflex. Patient was recommended for CABG. Denies any complaint overnight. Vitals/I&O/Wt Last Vital Signs Temp 97.6 F 08/13/20 07:19 Pulse 113 H 08/13/20 16:00 Resp 20 H 08/13/20 16:00 BP 140/87 08/13/20 16:00 Pulse Ox 96 08/13/20 11:01 08/13/20 08/13/20 08/13/20 06:59 14:59 22:59 Intake Total 480 / 724.025 360 / 360 240 / 600 Output Total 700 / 700 500 / 500 Balance -220 / 24.025 360 / 360 -260 / 100 Physical Exam Narrative: EXAM NARRATIVE: GENERAL: Patient is alert, awake and oriented x3. NECK: No jugular vein distension. HEENT: No cyanosis. No icterus. No pallor. HEART: Regular S1 and S2. No murmur, rub or gallop. LUNGS: Clear to auscultate bilaterally. ABDOMEN: Soft, nontender and nondistended. Positive bowel sounds. No guarding, rebound or tenderness. CENTRAL NERVOUS SYSTEM: Grossly nonfocal. EXTREMITIES: Lower extremities without edema bilaterally. Data : 08/13/20 05:06 08/13/20 05:06 A&P Assessment and plan (1) Coronary arteriosclerosis in [place] artery: S/p left heart cath showing calcified proximal to mid bifurcating LAD and diagonal lesion along with moderate to severe proximal circumflex stenosis. CABG was recommended. I have detailed discussion with the patient the family regarding the data and long-term benefit with superiority in her case in terms of CABG. My meeting was at least for 25 minutes. Family and patient agreed with proceeding with CABG. Dr. Solano will be in touch with the patient and the family this evening for possible CABG in the morning. Continue aspirin statin beta-wyatt and aspirin. Left ventricle function is mildly depressed as per echo and LV gram was no gradient across the aortic valve. Status: Acute (2) Uncontrolled hypertension: Continue current regimen along with IV nitroglycerin if needed. Status: Acute Attestations Medical Necessity Statement*: Patient require continuation hospitalization for above defined care. 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
[2020-08-13] MEDS: temazepam 15 mg Capsule 30 MG PO (21:01)
--- NOTE | 2020-08-13 22:04 | PC.NURSE ---
BP cycling every 30min due to Nitro drip running. Patient was given Restoril 30mg PO as ordered and requested by patient. Patient current BP is 88/58. Placed Nitro drip on hold for now. Will continue to monitor BP every 30min. Patient denies any discomforts at this time. No distress observed.
[2020-08-14] VITALS (64 sets, daily range): BP systolic 92–156; BP diastolic 54–90; PULSE 56–114; RESP 11–33; TEMP 36.4–37.5; O2SAT 96–100
--- NOTE | 2020-08-14 04:40 | PC.NURSE ---
Hair clipped to groin legs. Patient up to shower with Betasept. Replaced telemetry with 3-lead wires. Nothing placed over chest area. New 18g IV started per protocol in the right AC. Patient has existing 20g to left AC flushes well but does not draw. Consent signed and placed in chart.
--- NOTE | 2020-08-14 06:16 | P.PN_ITS ---
Subjective Subjective: Interval history: Chest pain. Rested really well last night. Still requiring nitroglycerin for blood pressure control. Preoperative evaluation been completed. Vitals/I&O/Wt Last Vital Signs Temp 98 F 08/14/20 03:58 Pulse 59 L 08/14/20 05:58 Resp 15 08/14/20 03:58 BP 112/64 08/14/20 03:58 Pulse Ox 96 08/14/20 03:58 08/13/20 08/13/20 08/14/20 14:59 22:59 06:59 Intake Total 360 / 360 283.025 / 643.025 Output Total 500 / 500 Balance 360 / 360 -216.975 / 143.025 Physical Exam Chest: COMMONS NORMALS: normal inspection of the chest and normal palpation of entire chest wall Resp: COMMON NORMALS: normal respiratory effort, No retractions and clear to auscultation bilaterally EFFORT & INSPECTION: Yes able to speak in complete sentences AUSCULTATION: clear to auscultation bilaterally Cardio: COMMON NORMALS: regular rate, regular rhythm, S1 normal heart sound present, No murmurs present (Cardio) and No rub (Cardio) RATE: regular rate RHYTHM: regular rhythm HEART SOUNDS: S1 normal heart sound present Extremity: COMMON NORMALS: no clubbing, cyanosis or edema Data : 08/13/20 05:06 08/13/20 05:06 A&P Assessment and plan (1) Coronary arteriosclerosis in [place] artery: For CABG this morning. All questions answered. Patient and family are eager to proceed. Details and risk again reviewed. Status: Acute Attestations Medical Necessity Statement*: Severe complex two-vessel coronary artery disease Time Spent in Patient Care: less than 15 minutes Coding Level of Care Code Acute Compactor Driver for Shae [place] Diagnoses Coronary arteriosclerosis in [place] artery I25.10
[2020-08-14 07:05] LABS: Coronavirus Lab Test PTC Negative
[2020-08-14] MEDS: vancomycin 1,000 MG in sodium chloride 0.9% 250 ML 250 MG IV (07:45)
[2020-08-14] MEDS: heparin, porcine 1,000 unit/mL INJ 10 mL 1750 UNIT IRRIGATION (08:47)
[2020-08-14] MEDS: vancomycin 1,000 MG SDV 2000 MG IRRIGATION (08:47)
[2020-08-14] MEDS: thrombin 5,000 unit SDV 5000 UNIT XX (08:47)
[2020-08-14] MEDS: sodium bicarbonate 1 mEq/mL SDV 50mL 50 MEQ XX (08:47)
--- NOTE | 2020-08-14 08:57 | SUR.OPER ---
0855 - Pt's daughter Thea notified of surgery start via her cell phone.
--- NOTE | 2020-08-14 10:42 | SUR.OPER ---
1042 - Thea updated on surgery progress and pt status via her cell phone.
--- NOTE | 2020-08-14 10:47 | ANES.PROC ---
Anesthesia Procedures Procedure/Date: 08/14/20 Left radial a.line, RIJ introducer and triple lumen Arterial Line: Time Out Performed: Yes Consent: from patient, risks and benefits reviewed and patient agrees to proceed Size (Gauge): 20 Technique Used: guide wire technique Post-Procedure: dry sterile dressing placed Patient Tolerated Procedure: well and other (hematoma) Site: left Central Venous Insert: Central Venous Line: Double stick, RIJ introducer and 7fr-20cm triple lumen Time Out Performed: Yes Consent: from patient, risks and benefits reviewed and patient agrees to proceed Central Line: New Anesthesia monitors: pulse oximetry, EKG, BP cuff and oxygen Vein cannulated: right internal jugular Post procedure: Other (CXR pending) Additional Comments: Sterile prep and drape, gown, gloves, mask (in OR)--seeker needle into RIJ followed by large bore needle and wire, second stick same 2 cm proximal; wires passed easily, tissue dilated and catheters placed easily. NO apparent complications, blood and pressure from lines quite obviously venous. Sutured into place, sterile dressing at end of procedure. Patient under GETA.
--- NOTE | 2020-08-14 12:34 | SUR.OPER ---
Sunita Sidhu updated on surgery progress and pt status via her cell phone.
--- NOTE | 2020-08-14 13:30 | SUR.OPER ---
Jennifer Sidhu updated on surgery progress and pt status via her cell phone.
--- NOTE | 2020-08-14 13:41 | XR_ITS ---
WS: [id number] PORTABLE CHEST HISTORY: post cabg COMPARISON: 08/12/2020 Status post CABG. Elora-Rubén catheter placed with the tip of the catheter extending into the proximal RIGHT lower lobe pulmonary artery. Nasogastric tube and endotracheal tubes are in good position. Sing le left-sided chest tube with tip directed superiorly. Mild emphysema. No area of dense consolidation. No pleural effusion or pneumothorax. Cardiac size: Normal. Mediastinum/Aorta: Mild atherosclerosis aorta. No osseous abnormality seen. XR/XR chest 1V portable [id number] IMPRESSION: 1. Status post CABG. 2. Single LEFT thoracostomy tube with no pneumothorax. 3. Tip of the Elora-Rubén catheter extends into the proximal RIGHT lower lobe pu lmonary artery. 4. Endotracheal tube and nasogastric tubes are in good position.
--- NOTE | 2020-08-14 14:43 | ECG_ITS ---
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 Measurements Intervals [place] Rate: 113 P: 74 VA: 129 QRS: 60 QRSD: 89 T: 26 QT: 327 QTc: 449 Interpretive Statements SINUS TACHYCARDIA ABNORMAL RHYTHM ECG No previous ECG available for comparison Electronically Signed On 08-14-2020 21:24:46 PLANT ECOLOGIST by Candice Ochoa M.D. [id number]
--- NOTE | 2020-08-14 14:50 | PC.NURSE ---
Addendum entered by Ania Robison RN 08/14/20 18:48: TIme error pt arrived at 1535 Addendum entered by Ania Robison RN 08/14/20 18:33: SHANKARANZ noted to be at 54 at the hub. Original Note: Pt arrives to ICU from surgery. Pt intubated and sedated. VS monitored. Chest tubes( 1 pleural and 2 mediastinal) patent and draining. Wound vac ,in place media chest, patent. OG noted. 3 peripheral IVs noted. Swanz/Cordis and central line noted in right neck.
[2020-08-14 15:11] LABS: ABG PCO2 29.4 mmHg (35-45); ABG PH Result 7.47 (7.35-7.45); Arterial Blood Gas Hematocrit 43.2 % (37-47); Basophils # 0.1 10^3/uL (0.0-0.1); Basophils % 0.3 %; Blood Gas Operator Identificat CAK; Blood Gas Sample Site ARTLINE; Blood Gas Sample Type Arterial; Blood Gas Tidal Volume 0.45; Eosinophils % 0.2 %; HCO3 ABG 21.6 mmol/L (22-26); Hematocrit 35.8 % (37.0-47.0); Hemoglobin 11.8 g/dL (11.5-15.3); Lymphocytes # 0.9 10^3/uL (0.8-4.8); Lymphocytes % 4.7 %; Mean Corpuscular Volume 84.8 fL (81-99); Mean Platelet Volume 10.6 fL (7.4-10.4); Monocytes # 1.5 10^3/uL (0.2-0.9); Monocytes % 7.6 %; Neutrophils # 17.11 10^3/uL (1.8-7.7); Neutrophils % 85.8 %; Nucleated Red Blood Cells % 0 %; Oxygen Device VENT; Platelet Count 155 10^3/cmm (130-400); Red Blood Count 4.22 10^6/uL (4.1-5.3); Red Cell Distribution Width 13.2 % (12.1-15.1); White Blood Count 19.9 10^3/uL (4.0-10.0)
[2020-08-14 15:17] LABS: INR 1.46 (0.8-1.2)
[2020-08-14 15:18] LABS: Partial Thromboplastin Time 31.3 SECONDS (23.9-36.7)
[2020-08-14 15:26] LABS: Blood Urea Nitrogen 19 mg/dL (8-23); Calcium 9.4 mg/dL (8.5-10.5); Carbon Dioxide 21 mmol/L (22-29); Chloride 115 mmol/L (98-107); Glomerular Filtration Rate 71.8 mL/min (90-130); Glucose 149 mg/dL (65-115); Magnesium 2.3 mg/dL (1.7-2.3); Osmolality Calculated 301 mOsm/kg (285-295); Sodium 143 mmol/L (136-145)
[2020-08-14] MEDS: albumin 12.5 GM/250 ML VIAL IV ×3 (15:26→17:31)
[2020-08-14] MEDS: propofol 1,000 MG/100 ML INJ 7.7 MG IV ×2 (15:27→23:16)
[2020-08-14 15:28] LABS: Anion Gap 11.4 (5-19); Potassium 4.4 mmol/L (3.5-5.1)
[2020-08-14] MEDS: sodium chloride 0.9% 1,000 ML 75 ML IV (15:30)
--- NOTE | 2020-08-14 15:30 | PC.NURSE ---
Chemistry and Hematology levels reviewed, no interventions needed at this time.
--- NOTE | 2020-08-14 15:40 | ANE.PACU2 ---
Inpatient post-anesthesia follow up: Airway intact: Yes Vital signs: Temperature 97.9 F Pulse Rate 94 Respiratory Rate 12 Blood Pressure [Le ft Arm] 162/100 Blood Pressure 111/54 Pulse Oximetry 100 Oxygen Delivery Me thod Mechanical Ventila tion Oxygen Flow Rate Fraction of Inspir ed Oxygen 50 Hydration adequate: No Nausea and vomiting: No Pain level: 3 Mental status: Altered Additional Comments: Intubated/ventilated to ICU, sedated. Minimal pressors.
--- NOTE | 2020-08-14 15:45 | PC.NURSE ---
t arrives to ICU from surgery. Pt intubated and sedated. VS monitored. Chest tubes( 1 pleural and 2 mediastinal) patent and draining. Wound vac ,in place media chest, patent. NG noted in left nare. 3 peripheral IVs noted. Swanz/Cordis and central line noted in right neck. SWANZ at 54 at the hub. Left arterial line patent.
[2020-08-14] MEDS: fentaNYL 50 mcg/mL INJ 2mL IVP (16:00)
--- NOTE | 2020-08-14 16:00 | PC.NURSE ---
Chemistry and Hematology levels reviewed, no interventions needed at this time.
--- NOTE | 2020-08-14 16:00 | PC.NURSE ---
Pt has been monitored continuously. Hemodynamics/vital signs not interfacing chart nor available on monitoring. for manual input since arrival to ICU.
--- NOTE | 2020-08-14 16:01 | PM.OP ---
Operative Report Date of procedure: August 14, 2020 Pre-op Diagnosis: Complex two-vessel coronary artery disease Post-op diagnosis: same Procedure Done: 1. Coronary artery bypass grafting x3 utilizing in situ left internal mammary artery to left anterior descending artery, reverse saphenous vein graft aorta to the diagonal artery, and reverse saphenous vein graft aorta to the ramus intermedius. 2. Endoscopic harvesting of the right and left greater saphenous vein in the thighs Implants: Coronary vein markers x2 Pathology: none sent Surgeon: Oswald Solano Anesthesia: General Complications: None Findings: In situ left internal mammary artery carried good flow Saphenous vein was of average quality Condition: stable Disposition: ICU Brief History: Ms. Leon is a 64-year-old female with progressive exertional angina and a highly positive stress test resulting in left heart catheterization which revealed a complex LAD diagonal stenosis as well as disease of the proximal large ramus intermedius branch. Due to the complexity of the bifurcating LAD stenosis, surgical revascularization was recommended. Appropriate preoperative evaluations as well as patient and family education were completed. Details and risk of surgery carefully discussed. Appropriate consents reviewed and signed. Procedure: Details and risks of the surgery were carefully and frankly explained to Ms. Leon and the family. Particular risks of this surgery carefully reviewed with them included the possibility of , stroke, heart attack, major bleeding, infection, pneumonia, pain, organ failure, failure to benefit, early closure of the bypass grafts, prolonged hospital stay and subsequent need for further procedures. Increased risks for complications secondary to her small body habitus as well as long-term steroid use were carefully reviewed. Ms. Leon and family and family understand these increased risks. All questions were answered and appropriate consents were reviewed and signed. Preoperative education for the patient and the family included both written and video materials. The patient and the family wished to proceed with plans for attempted surgical revascularization for severe coronary artery bypass. PROCEDURE: Preoperative evaluation was obtained from our Anesthesia colleagues and adequate IVs were confirmed. The patient was then taken to the Operating Room Suite where general anesthesia was induced. Appropriate invasive monitoring lines were placed, including large bore peripheral IVs, central line, [place]-Rubén catheter, Chaudhry catheter and associated monitoring leads. After careful positioning on the Operating Room table, the patient was subsequently sterilely prepped and draped. Saphenous vein was harvested by endoscopic technique from the right and left thighs. Branches were secured with ligature and clips and the vein was extracted from the tunnel without tension. It was then flushed with a Heparin and albumin solution and prepared for grafting. Vein harvest sites were irrigated, platelet poor plasma infused into the tunnel and port sites closed with 3-0 and 4-0 Vicryl Plus suture. Simultaneously with vein harvesting, a median sternotomy was created utilizing a #10 scalpel blade with hemostasis controlled with cautery. After reaching the sternal table, the sternum was divided with a reciprocating saw. Bleeding was controlled with cautery and judicious use of bone wax. Following this, the left chest wall was elevated with a Rultract retractor. The left internal mammary artery was dissected free with branches being secured with clips and cautery. The distal end was left intact. After harvesting of the mammary artery, a left pleural chest tube was then placed. The left chest wall was then lowered and moistened antibiotic-soaked laparotomy pads were placed in the wound, followed by an Ankeney retractor. The sternum was then and the pericardium opened and secured with stay sutures. After inspection, 2-0 pledgeted Ethibond sutures were placed at cannulation sites, at which time the patient was fully heparinized. Following this, the left internal mammary artery was taken down from its distal attachment, flushed with Papaverine solution, prepared for grafting and brisk flow confirmed. A soft bulldog was applied distally. Next, the heart was cannulated with a 22-[place] aortic cannula, two-stage venous cannula and aortic root vent. The patient was subsequently placed on cardiopulmonary bypass and cooled systemically to 34 degrees. Aortic cross-clamp was then carefully placed and 4 degree Celsius cold blood cardioplegia was administered through the aortic root in antegrade fashion. Prompt diastolic arrest was obtained. Left ventricular decompression was confirmed. The heart was cooled systemically with iced saline with an insulation pad in place to protect the phrenic nerve. Throughout the cross-clamp period, at 20-30 minute intervals, antegrade blood cardioplegia was administered to maintain asystole. We then inspected the cardiac surface and coronary anatomy. Distally, the ramus intermedius branch was dissected from a slightly intramyocardial position at 2 mm in size. Vein was anastomosed distally with a running 7-0 Prolene suture and proximal medial 4 mm aortotomy with 5-0 Prolene. Next, a moderately heavily diseased diagonal artery was opened up and 1.25 mm in size. A second portion of vein was anastomosed to this vessel with 7-0 Prolene suture distally in a running fashion and then approximately 2 a 4 mm aortotomy with 5-0 Prolene suture. With the rewarming phase of bypass continuing, the left internal mammary artery was brought through a left anterior pericardial window into the field. The LAD was opened up in its distal one-third and was approximately 1.5 mm in size. The NEWMAN was then anastomosed to the LAD with a running 7-0 Prolene suture. It should be noted that all distal coronary anastomoses were performed over the appropriate size coronary shunt which was removed prior to securing the distal suture line. Following this, aortic cross-clamp was released and de-airing maneuvers were performed through the aortic root vent, as well as being confirmed by transesophageal echocardiography. Dobutamine at 3 mcg per kilogram per minute was administered with good chronotropic and inotropic affect. The heart returned to spontaneous sinus rhythm and did not require cardioversion or pacing. After adequate recovery from the cross-clamp period and confirmation of cardiac stability, the patient was weaned from bypass without difficulty. Venous cannula was removed. Heparin was reversed with Protamine and confirmed by measurement of activated clotting time. The heart was then decannulated and cannulation sites were oversewn as required. Pacing wires were placed and brought through the skin and secured. Radiopaque markers were placed on the vein grafts at the level of aorta. Two mediastinal drains were placed and connected to Pleur-evac suction. The wound was carefully irrigated and hemostasis was confirmed. Ankeney retractor was removed and sponge and needle count was correct. The sternum was then reapproximated very carefully with interrupted #7 stainless steel wire with Surgicel strips used beneath the sternal table. Fascia was closed with #1 Vicryl suture with the next layers being closed with 2-0 and 3-0 suture. The skin was reapproximated carefully in a subcuticular manner. Sterile dressings were applied, followed by a vacuum-assisted dressing. The patient was carefully removed from the operating room table and transferred to the Intensive Care Unit. The family was then counseled as to the details of the procedure. I spoke with her daughter, Thea, by phone. Dr. Singh was notified of our operative findings and procedure details.
[2020-08-14] MEDS: aspirin 81 mg Chew Tablet OG-TUBE (18:12)
[2020-08-14] MEDS: chlorhexidine gluconate 0.12% Btl 473 mL 15 ML MUCOUS MEM (18:14)
[2020-08-14 18:31] LABS: Basophils % 0.2 %; Hematocrit 26.7 % (37.0-47.0); Hemoglobin 8.7 g/dL (11.5-15.3); Lymphocytes # 0.4 10^3/uL (0.8-4.8); Lymphocytes % 3.8 %; Mean Corpuscular HGB Conc 32.6 g/dL (30.0-36.0); Mean Corpuscular Hemoglobin 28.2 pg (28.0-34.0); Mean Corpuscular Volume 86.4 fL (81-99); Mean Platelet Volume 11.1 fL (7.4-10.4); Monocytes # 0.7 10^3/uL (0.2-0.9); Monocytes % 6.4 %; Neutrophils # 9.45 10^3/uL (1.8-7.7); Neutrophils % 88.7 %; Nucleated Red Blood Cells % 0 %; Platelet Count 94 10^3/cmm (130-400); Red Blood Count 3.09 10^6/uL (4.1-5.3); Red Cell Distribution Width 13.3 % (12.1-15.1); White Blood Count 10.7 10^3/uL (4.0-10.0)
[2020-08-14 18:38] LABS: Blood Urea Nitrogen 19 mg/dL (8-23); Calcium 8.8 mg/dL (8.5-10.5); Carbon Dioxide 21 mmol/L (22-29); Chloride 115 mmol/L (98-107); Glomerular Filtration Rate 62.6 mL/min (90-130); Glucose 128 mg/dL (65-115); Magnesium 2.2 mg/dL (1.7-2.3); Osmolality Calculated 300 mOsm/kg (285-295); Sodium 143 mmol/L (136-145)
--- NOTE | 2020-08-14 18:50 | PC.NURSE ---
Shift summary: Pt still intubated and on vent. Chest tubes patent and draining. Central line, SWANZ patent with good waveforms, and fluids and meds infusing. Art line patent with good waveform. Wound vac patent and sealed to mid chest. Frank bandages remain on bilat legs, no drainage noted. Chaudhry patent and draining. SCDs on. Insulin gtt started. Pt hemodynamics have been labile..She has received 3 bottles of albumin, a 250 bolus. Hypothermic with saran temp of 97.5, so bear hugger started. Hemodynamics improving after volume and heat. Report given to SASCHA Syed.
--- NOTE | 2020-08-14 19:00 | PC.NURSE ---
Report given to SASCHA Syed
[2020-08-14 19:07] LABS: Glucose Point of Care 112 mg/dL (70-110)
[2020-08-14 19:07] LABS: Glucose Point of Care 141 mg/dL (70-110)
[2020-08-14 19:07] LABS: Glucose Point of Care 107 mg/dL (70-110)
[2020-08-14 19:07] LABS: Glucose Point of Care 91 mg/dL (70-110)
[2020-08-14 19:07] LABS: Glucose Point of Care 141 mg/dL (70-110)
--- NOTE | 2020-08-14 20:07 | PM.PN ---
Subjective Subjective: Interval history: Status post CABG,NEWMAN to LAD, saphenous venous graft to diagonal and ramus intermedius. Patient postop intubated appeared to be dry Vitals/I&O/Wt Last Vital Signs Temp 97.9 F 08/14/20 06:20 Pulse 106 H 08/14/20 19:45 Resp 12 08/14/20 19:45 BP 125/61 08/14/20 19:46 Pulse Ox 100 08/14/20 19:45 08/14/20 08/14/20 08/14/20 06:59 14:59 22:59 Intake Total 3250 / 3250 1260.967 / 4510.967 Output Total 900 / 900 918 / 1818 Balance 2350 / 2350 342.967 / 2692.967 Physical Exam Narrative: EXAM NARRATIVE: GENERAL: Patient is intubated and sedated NECK: No jugular vein distension. HEENT: No cyanosis. No icterus. No pallor. HEART: Regular S1 and S2. No murmur, rub or gallop. LUNGS: Clear to auscultate bilaterally. CENTRAL NERVOUS SYSTEM: Sedated therefore cannot assess EXTREMITIES: Lower extremities without edema bilaterally. Const: COMMON NORMALS: alert Resp: COMMON NORMALS: clear to auscultation bilaterally AUSCULTATION: clear to auscultation bilaterally Neuro: SENSORIUM/ORIENTATION: Yes alert Urinary Catheter Management^: Chaudhry: Cath Placed During This Visit: yes Reason for Continuing Indwelling Catheter: Accurate Measurement of Urinary Output in Critically Ill Patients Urinary Catheter Date of Insertion: 08/14/20 Urinary Catheter Time of Insertion: 08:00 Data : 08/14/20 18:08 08/14/20 18:08 A&P Assessment and plan (1) Coronary arteriosclerosis in [place] artery: S/p CABG with 3 grafts as defined above. Continue as per surgery. Appear to be dry continue IV fluid and albumin Status: Acute Attestations Medical Necessity Statement*: Requires continuation hospitalization for above defined care. Procedures Arterial Line Size (Gauge): 20 Coding Level of Care Code Established Pt Acute Medical Diagnostic Radiographer for [place] Fwd Patient Type Established History Detailed Exam Detailed Medical Decision Making Moderate Complexity Diagnoses Coronary arteriosclerosis in [place] artery I25.10
--- NOTE | 2020-08-14 20:14 | PC.NURSE ---
Dr. Solano called to check on patient status. Updated on patients current v/s and hemodynamics, order given to transfuse 1 unit PRBC.
[2020-08-14] MEDS: atorvastatin 40 mg Tablet 20 MG PO (20:31)
--- NOTE | 2020-08-14 21:39 | PC.NURSE ---
1900 - Shashi at 54cm at hub
[2020-08-15] VITALS (60 sets, daily range): BP systolic 92–174; BP diastolic 47–104; PULSE 84–115; RESP 0–35; TEMP 36.8–37.5; O2SAT 92–100
[2020-08-15 00:09] LABS: Basophils % 0.2 %; Hematocrit 29.5 % (37.0-47.0); Hemoglobin 9.8 g/dL (11.5-15.3); Lymphocytes # 0.4 10^3/uL (0.8-4.8); Lymphocytes % 4.1 %; Mean Corpuscular HGB Conc 33.2 g/dL (30.0-36.0); Mean Corpuscular Hemoglobin 28.5 pg (28.0-34.0); Mean Corpuscular Volume 85.8 fL (81-99); Mean Platelet Volume 10.9 fL (7.4-10.4); Monocytes # 0.8 10^3/uL (0.2-0.9); Neutrophils # 8.65 10^3/uL (1.8-7.7); Neutrophils % 87.1 %; Nucleated Red Blood Cells % 0 %; Platelet Count 101 10^3/cmm (130-400); Red Blood Count 3.44 10^6/uL (4.1-5.3); Red Cell Distribution Width 13.3 % (12.1-15.1); White Blood Count 9.9 10^3/uL (4.0-10.0)
[2020-08-15 00:19] LABS: Anion Gap 11.1 (5-19); Blood Urea Nitrogen 21 mg/dL (8-23); Calcium 8.7 mg/dL (8.5-10.5); Carbon Dioxide 21 mmol/L (22-29); Chloride 115 mmol/L (98-107); Glomerular Filtration Rate 62.6 mL/min (90-130); Glucose 130 mg/dL (65-115); Osmolality Calculated 301 mOsm/kg (285-295); Potassium 4.1 mmol/L (3.5-5.1); Sodium 143 mmol/L (136-145)
[2020-08-15] MEDS: fentaNYL 50 mcg/mL INJ 2mL IVP ×2 (00:58→09:23)
[2020-08-15] MEDS: sodium chloride 0.9% 1,000 ML 75 ML IV ×2 (01:19→17:56)
[2020-08-15] MEDS: nitroglycerin drip 50 MG/250 ML PREMIX IV (01:36)
--- NOTE | 2020-08-15 02:13 | PC.RESP ---
extubated to 3lm nc @0210 without incident
--- NOTE | 2020-08-15 02:15 | PC.NURSE ---
0210 - Extubated per RT without difficulty, placed on 3L NC. Tolerated well. Restraints discontinued.
[2020-08-15] MEDS: labetalol 5 mg/mL SDV 20mL 10 MG IVP ×2 (02:45→04:44)
[2020-08-15 04:05] LABS: ABG PH Result 7.38 (7.35-7.45); Base Excess ABG -3.4 mmol/L (-2.0-2.0); Blood Gas Operator Identificat JB; Blood Gas Sample Type Arterial; Carboxyhemoglobin 0.9 %THgb (0.4-20.1); HCO3 ABG 21.2 mmol/L (22-26); HGB O2 Sat 97.4 % (95-100); Ionized Calcium Level - ABG 1.3 mmol/L (1.1-1.4); Methemoglobin 1.1 % (0.4-1.5); Oxygen Device NC; Oxygen Saturation ABG 99.3; Potassium Level - ABG 3.9 mmol/L (3.5-5.0); Total Hemoglobin 10.1 g/dL (12-16)
[2020-08-15 04:22] LABS: Basophils % 0.1 %; Hematocrit 30.2 % (37.0-47.0); Hemoglobin 9.7 g/dL (11.5-15.3); Lymphocytes # 0.4 10^3/uL (0.8-4.8); Lymphocytes % 3.4 %; Mean Corpuscular HGB Conc 32.1 g/dL (30.0-36.0); Mean Corpuscular Hemoglobin 28.2 pg (28.0-34.0); Mean Corpuscular Volume 87.8 fL (81-99); Mean Platelet Volume 11.4 fL (7.4-10.4); Monocytes # 1.1 10^3/uL (0.2-0.9); Monocytes % 8.8 %; Nucleated Red Blood Cells % 0 %; Platelet Count 119 10^3/cmm (130-400); Red Blood Count 3.44 10^6/uL (4.1-5.3); Red Cell Distribution Width 13.4 % (12.1-15.1); White Blood Count 12.2 10^3/uL (4.0-10.0)
[2020-08-15] MEDS: oxyCODONE-APAP 5-325 mg Tablet PO ×3 (04:28→20:37)
[2020-08-15 04:38] LABS: INR 1.45 (0.8-1.2); Partial Thromboplastin Time 32.9 SECONDS (23.9-36.7)
[2020-08-15 04:48] LABS: Blood Urea Nitrogen 20 mg/dL (8-23); Calcium 8.5 mg/dL (8.5-10.5); Carbon Dioxide 21 mmol/L (22-29); Chloride 114 mmol/L (98-107); Glomerular Filtration Rate 55.5 mL/min (90-130); Glucose 104 mg/dL (65-115); Glucose Fasting 104 mg/dL (74-106); Magnesium 1.9 mg/dL (1.7-2.3); Osmolality Calculated 297 mOsm/kg (285-295); Sodium 142 mmol/L (136-145)
--- NOTE | 2020-08-15 06:00 | ECG_ITS ---
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 Measurements Intervals [place] Rate: 104 P: 62 NM: 133 QRS: 65 QRSD: 106 T: -14 QT: 319 QTc: 420 Interpretive Statements SINUS TACHYCARDIA NONSPECIFIC ST & T-WAVE ABNORMALITY Compared to ECG 08/14/2020 15:26:45 T-wave abnormality now present Electronically Signed On 08-15-2020 20:57:23 LAP CUTTER TRUER OPERATOR by Francisco Vasquez M.D. [id number]
--- NOTE | 2020-08-15 06:00 | XR_ITS ---
WS: [id number] XR chest 1V portable [id number] REASON FOR EXAM: POD#1 s/p cabg FINDINGS: Comparison examination 08/14/2020. Sternotomy and coronary artery bypass surgery. Compared to the previous day the endotracheal tube and the nasogastric tube is been removed. Left chest tube remains in position. [place]-Rubén catheter remain s in position with tip in the a descending pulmonary artery branch in the right lung. Right IJ centra l venous line remains in position with the tip in the superior vena cava. New vague lung opacity in the right lower lung field which may relate to suboptimal inspiration. XR/XR chest 1V portable [id number] IMPRESSION: Removal of the nasogastric tube and endotracheal tube. Remaining tubes are in p deya position. New minimal right lower lung density as above.
--- NOTE | 2020-08-15 06:50 | PC.NURSE ---
Dr. Solano to bedside, updated on current patient v/s and medications. Order given to discontinue swan and cordis. Discontinued R IJ [place] and cordis. Tolerated well. V/S remain stable. Sterile dressing placed over R IJ site.
[2020-08-15] MEDS: amlodipine 5 mg Tablet 2.5 MG PO (06:59)
[2020-08-15] MEDS: metoprolol tartrate 25 mg Tablet PO ×2 (07:00→20:37)
[2020-08-15] MEDS: morphine 4 mg/mL SDV 1 mL 2 MG IVP ×2 (07:59→13:59)
[2020-08-15] MEDS: vancomycin 1,000 MG in sodium chloride 0.9% 250 ML 166.7 MG IV (08:01)
--- NOTE | 2020-08-15 08:20 | PC.NURSE ---
Pt out of bed to chair. Pt able to bear her weight well. SHe did not have difficulty getting up.
--- NOTE | 2020-08-15 08:40 | P.PN_ITS ---
Subjective Subjective: Interval history: Postop day #1 status post CABG x3. Uneventful night. Extubated. Alert and neurologically intact. Chest tube output is continued to decrease. Did receive 1 unit packed RBCs overnight. Inotropes are off. Has responded well to labetalol though is also requiring night pride for blood pressure control. Chest x-ray remains clear. Mediastinum remains narrow. Support lines and drain tubes are in good position. Chest tube output 733 cc since surgery. Intake and output is up about 2.5 L. Vitals/I&O/Wt Last Vital Signs Temp 99.0 F 08/14/20 23:29 Pulse 98 08/15/20 06:00 Resp 14 08/15/20 07:59 BP 121/69 08/15/20 06:00 Pulse Ox 98 08/15/20 07:59 08/14/20 08/15/20 08/15/20 22:59 06:59 14:59 Intake Total 1656.837 / 4906.837 748.632 / 5655.469 Output Total 1158 / 2058 640 / 2698 Balance 498.837 / 2848.837 108.632 / 2957.469 Physical Exam Chest: COMMONS NORMALS: normal inspection of the chest (Wound VAC dressing remains in place. Sternum is stable.) Resp: COMMON NORMALS: normal respiratory effort, No retractions and clear to auscultation bilaterally EFFORT & INSPECTION: Yes able to speak in complete sentences AUSCULTATION: clear to auscultation bilaterally OTHER: Basilar crackles. Cardio: COMMON NORMALS: regular rate, regular rhythm, S1 normal heart sound present and No murmurs present (Cardio) RATE: regular rate RHYTHM: regular rhythm HEART SOUNDS: S1 normal heart sound present Extremity: OTHER: 1+ left lower extremity edema bilaterally. Urinary Catheter Management^: Chaudhry: Cath Placed During This Visit: yes Reason for Continuing Indwelling Catheter: Accurate Measurement of Urinary Output in Critically Ill Patients Urinary Catheter Date of Insertion: 08/14/20 Urinary Catheter Time of Insertion: 08:00 Data : 08/15/20 03:55 08/15/20 03:55 A&P Assessment and plan (1) Status post aorto-coronary artery bypass graft: Postop day #1 status post CABG x3 Plan: Metoprolol 25 mg p.o. twice daily, aspirin 81 mg daily, Lipitor 40 mg nightly, resume home med amlodipine 2.5 mg daily, resume levothyroxine 112 mcg daily, CBC, BMP, chest x-ray in a.m. Status: Acute Attestations Medical Necessity Statement*: POD #1 status post CABG Time Spent in Patient Care: 16 - 35 minutes Procedures Arterial Line Size (Gauge): 20 Coding Level of Care Code Acute Circular Knitter for Chg Fwd Diagnoses Status post aorto-coronary artery bypass graft Z95.1
--- NOTE | 2020-08-15 09:00 | PC.SOCIAL ---
IMM Page 2 of [facility] explained to patient's daughter Thea by phone. Initialed, dated, and timed and placed in chart. Copy provided to patient's bedside.
--- NOTE | 2020-08-15 09:30 | PC.NURSE ---
Dr Solano notified that pt requested art line come out because it hurts. Pt still on insulin and nipride gtts. To leave art line until pt does not need noprode or nitroglycerin. Pt has stony history of HTN., as she required Nitro pre-operatively.
[2020-08-15 09:37] LABS: Glucose Point of Care 103 mg/dL (70-110)
[2020-08-15 09:37] LABS: Glucose Point of Care 105 mg/dL (70-110)
[2020-08-15 09:37] LABS: Glucose Point of Care 100 mg/dL (70-110)
[2020-08-15 09:37] LABS: Glucose Point of Care 101 mg/dL (70-110)
[2020-08-15 09:37] LABS: Glucose Point of Care 105 mg/dL (70-110)
[2020-08-15 09:37] LABS: Glucose Point of Care 110 mg/dL (70-110)
[2020-08-15 09:37] LABS: Glucose Point of Care 101 mg/dL (70-110)
[2020-08-15 09:37] LABS: Glucose Point of Care 98 mg/dL (70-110)
[2020-08-15 09:37] LABS: Glucose Point of Care 128 mg/dL (70-110)
[2020-08-15 09:37] LABS: Glucose Point of Care 112 mg/dL (70-110)
[2020-08-15 09:37] LABS: Glucose Point of Care 111 mg/dL (70-110)
[2020-08-15 09:37] LABS: Glucose Point of Care 103 mg/dL (70-110)
[2020-08-15 09:37] LABS: Glucose Point of Care 101 mg/dL (70-110)
[2020-08-15 09:37] LABS: Glucose Point of Care 113 mg/dL (70-110)
--- NOTE | 2020-08-15 10:33 | PC.NURSE ---
Family< Michelle and Thea, updated on pt's condition.
[2020-08-15 11:17] LABS: Glucose Point of Care 89 mg/dL (70-110)
--- NOTE | 2020-08-15 11:44 | PC.NURSE ---
resting at this time no distress noted nipride off at this time ... monitoring B/P
[2020-08-15 13:12] LABS: Glucose Point of Care 129 mg/dL (70-110)
[2020-08-15 13:12] LABS: Glucose Point of Care 90 mg/dL (70-110)
--- NOTE | 2020-08-15 14:22 | PC.NURSE ---
meds iv given for pain in chest repositoned at this time
[2020-08-15 16:21] LABS: ABG PCO2 39.6 mmHg (35-45); Arterial Blood Gas Hematocrit 26.1 % (37-47); Base Excess ABG -0.5 mmol/L (-2.0-2.0); Blood Gas Allen Test Pos; Blood Gas Sample Site Not specified; Blood Gas Sample Type Arterial; Carboxyhemoglobin 1.1 %THgb (0.4-20.1); HCO3 ABG 24.3 mmol/L (22-26); HGB O2 Sat 98.8 % (95-100); Ionized Calcium Level - ABG 1.4 mmol/L (1.1-1.4); Oxygen Saturation ABG > 100.0; Potassium Level - ABG 3.9 mmol/L (3.5-5.0); Total Hemoglobin 8.5 g/dL (12-16)
[2020-08-15 16:23] LABS: ABG PCO2 37.7 mmHg (35-45); ABG PH Result 7.36 (7.35-7.45); Base Excess ABG -3.8 mmol/L (-2.0-2.0); Blood Gas Allen Test Pos; Blood Gas Sample Site Not specified; Blood Gas Sample Type Arterial; Carboxyhemoglobin 0.6 %THgb (0.4-20.1); HCO3 ABG 21.2 mmol/L (22-26); HGB O2 Sat 99.4 % (95-100); Ionized Calcium Level - ABG 1.2 mmol/L (1.1-1.4); Methemoglobin 0.5 % (0.4-1.5); Oxygen Saturation ABG > 100.0; Potassium Level - ABG 3.5 mmol/L (3.5-5.0); Total Hemoglobin 13.7 g/dL (12-16)
[2020-08-15 16:24] LABS: ABG PCO2 31.6 mmHg (35-45); ABG PH Result 7.48 (7.35-7.45); Arterial Blood Gas Hematocrit 24.6 % (37-47); Blood Gas Allen Test Pos; Blood Gas Sample Site Not specified; Blood Gas Sample Type Arterial; Carboxyhemoglobin 0.8 %THgb (0.4-20.1); HCO3 ABG 23.3 mmol/L (22-26); HGB O2 Sat 99.1 % (95-100); Ionized Calcium Level - ABG 0.9 mmol/L (1.1-1.4); Methemoglobin 0.7 % (0.4-1.5); Oxygen Saturation ABG > 100.0; Potassium Level - ABG 4.7 mmol/L (3.5-5.0)
[2020-08-15 16:26] LABS: ABG PCO2 34.1 mmHg (35-45); ABG PH Result 7.46 (7.35-7.45); Arterial Blood Gas Hematocrit 24.7 % (37-47); Base Excess ABG 0.2 mmol/L (-2.0-2.0); Blood Gas Sample Site Not specified; Blood Gas Sample Type Venous; HGB O2 Sat 91.1 % (95-100); Ionized Calcium Level - ABG 0.9 mmol/L (1.1-1.4); Methemoglobin 0.7 % (0.4-1.5); Oxygen Saturation ABG 92.7; PO2 ABG 56.5 mmHg (80.0-100.0); Potassium Level - ABG 4.4 mmol/L (3.5-5.0); Total Hemoglobin 8.1 g/dL (12-16)
[2020-08-15 16:27] LABS: ABG PCO2 38.7 mmHg (35-45); ABG PH Result 7.41 (7.35-7.45); Arterial Blood Gas Hematocrit 25.2 % (37-47); Base Excess ABG -0.2 mmol/L (-2.0-2.0); Blood Gas Allen Test Pos; Blood Gas Sample Site Not specified; Blood Gas Sample Type Arterial; Carboxyhemoglobin 0.7 %THgb (0.4-20.1); HCO3 ABG 24.4 mmol/L (22-26); HGB O2 Sat 98.7 % (95-100); Oxygen Saturation ABG > 100.0; Potassium Level - ABG 4.4 mmol/L (3.5-5.0); Total Hemoglobin 8.2 g/dL (12-16)
[2020-08-15 16:29] LABS: ABG PCO2 40.5 mmHg (35-45); ABG PH Result 7.37 (7.35-7.45); Arterial Blood Gas Hematocrit 25.1 % (37-47); Base Excess ABG -1.9 mmol/L (-2.0-2.0); Blood Gas Allen Test Pos; Blood Gas Sample Site Not specified; Blood Gas Sample Type Arterial; Carboxyhemoglobin 0.8 %THgb (0.4-20.1); HCO3 ABG 23.3 mmol/L (22-26); HGB O2 Sat 98.9 % (95-100); Methemoglobin 0.8 % (0.4-1.5); Oxygen Saturation ABG > 100.0; Potassium Level - ABG 4.5 mmol/L (3.5-5.0); Total Hemoglobin 8.2 g/dL (12-16)
[2020-08-15] MEDS: chlorhexidine gluconate 0.12% Btl 473 mL 15 ML MUCOUS MEM (17:57)
[2020-08-15 18:48] LABS: Glucose Point of Care 114 mg/dL (70-110)
[2020-08-15 18:48] LABS: Glucose Point of Care 90 mg/dL (70-110)
[2020-08-15 18:48] LABS: Glucose Point of Care 102 mg/dL (70-110)
[2020-08-15 18:48] LABS: Glucose Point of Care 91 mg/dL (70-110)
[2020-08-15 18:48] LABS: Glucose Point of Care 106 mg/dL (70-110)
--- NOTE | 2020-08-15 18:51 | PM.PN ---
Subjective Subjective: Interval history: Patient has been extubated this morning. Vitals/I&O/Wt Last Vital Signs Temp 99.0 F 08/14/20 23:29 Pulse 95 08/15/20 14:56 Resp 16 08/15/20 14:54 BP 109/64 08/15/20 10:00 Pulse Ox 97 08/15/20 14:54 08/15/20 08/15/20 08/15/20 06:59 14:59 22:59 Intake Total 748.632 / 5655.469 1729.185 / 2512.488 8932 / 5269.185 Output Total 640 / 2698 385 / 385 1190 / 1575 Balance 108.632 / 2957.469 1344.185 / 1655.160 0445 / 3694.185 Physical Exam Narrative: EXAM NARRATIVE: GENERAL: Patient is alert, awake and oriented x3. Says left arm hurts better but annualized present she is sitting in the chair not in acute distress NECK: No jugular vein distension. HEENT: No cyanosis. No icterus. No pallor. HEART: Regular S1 and S2. No murmur, rub or gallop. LUNGS: Clear to auscultate bilaterally. ABDOMEN: Soft, nontender and nondistended. Positive bowel sounds. No guarding, rebound or tenderness. CENTRAL NERVOUS SYSTEM: Grossly nonfocal. EXTREMITIES: Lower extremities without edema bilaterally. Const: COMMON NORMALS: alert Resp: COMMON NORMALS: clear to auscultation bilaterally AUSCULTATION: clear to auscultation bilaterally Neuro: SENSORIUM/ORIENTATION: Yes alert Urinary Catheter Management^: Chaudhry: Cath Placed During This Visit: yes Reason for Continuing Indwelling Catheter: Accurate Measurement of Urinary Output in Critically Ill Patients Urinary Catheter Date of Insertion: 08/14/20 Urinary Catheter Time of Insertion: 08:00 Data : 08/15/20 03:55 08/15/20 03:55 A&P Assessment and plan (1) Status post aorto-coronary artery bypass graft: Patient is postoperative second day after surgery. She has been extubated and doing well. She has been started on beta-wyatt we will add CLAUDIA inhibitor due to mildly depressed LV function. Continue rest of the treatment as per surgery. Continue physical therapy. Status: Acute Attestations Medical Necessity Statement*: Patient require continuation hospitalization post CABG Procedures Arterial Line Size (Gauge): 20 Coding Level of Care Code Established Pt Acute Client Technologies Specialist for Chg Fwd Patient Type Established History Expanded Problem Focused Exam Expanded Problem Focused Medical Decision Making Moderate Complexity Diagnoses Status post aorto-coronary artery bypass graft Z95.1
[2020-08-15] MEDS: aspirin 81 mg EC Tablet PO (19:10)
[2020-08-15] MEDS: atorvastatin 40 mg Tablet 20 MG PO (20:35)
[2020-08-15 20:45] LABS: Glucose Point of Care 105 mg/dL (70-110)
[2020-08-16] VITALS (28 sets, daily range): BP systolic 121–162; BP diastolic 81–107; PULSE 91–122; RESP 3–32; TEMP 36.8–37.3; O2SAT 93–99
[2020-08-16] MEDS: oxyCODONE-APAP 5-325 mg Tablet PO ×3 (02:23→20:48)
[2020-08-16 04:53] LABS: Basophils % 0.3 %; Eosinophils % 0.1 %; Hemoglobin 10.2 g/dL (11.5-15.3); Lymphocytes % 8.3 %; Mean Corpuscular HGB Conc 31.9 g/dL (30.0-36.0); Mean Corpuscular Hemoglobin 28.4 pg (28.0-34.0); Mean Corpuscular Volume 89.1 fL (81-99); Mean Platelet Volume 11.5 fL (7.4-10.4); Monocytes # 1.3 10^3/uL (0.2-0.9); Monocytes % 10.9 %; Neutrophils # 9.34 10^3/uL (1.8-7.7); Neutrophils % 79.9 %; Nucleated Red Blood Cells % 0 %; Platelet Count 104 10^3/cmm (130-400); Red Blood Count 3.59 10^6/uL (4.1-5.3); Red Cell Distribution Width 13.7 % (12.1-15.1); White Blood Count 11.7 10^3/uL (4.0-10.0)
[2020-08-16 05:18] LABS: Glucose Point of Care 116 mg/dL (70-110)
[2020-08-16 05:18] LABS: Glucose Point of Care 113 mg/dL (70-110)
[2020-08-16 05:18] LABS: Anion Gap 11.1 (5-19); Blood Urea Nitrogen 16 mg/dL (8-23); Calcium 8.8 mg/dL (8.5-10.5); Carbon Dioxide 24 mmol/L (22-29); Chloride 110 mmol/L (98-107); Creatinine Clr Calc Pharmacy 67.1658; Glomerular Filtration Rate 71.8 mL/min (90-130); Glucose 127 mg/dL (65-115); Osmolality Calculated 295 mOsm/kg (285-295); Potassium 4.1 mmol/L (3.5-5.1); Sodium 141 mmol/L (136-145)
[2020-08-16 05:18] LABS: Glucose Point of Care 99 mg/dL (70-110)
[2020-08-16 05:18] LABS: Glucose Point of Care 110 mg/dL (70-110)
[2020-08-16 05:18] LABS: Glucose Point of Care 115 mg/dL (70-110)
[2020-08-16 05:18] LABS: Glucose Point of Care 138 mg/dL (70-110)
[2020-08-16 05:18] LABS: Glucose Point of Care 111 mg/dL (70-110)
[2020-08-16 05:18] LABS: Glucose Point of Care 112 mg/dL (70-110)
[2020-08-16 05:18] LABS: Glucose Point of Care 130 mg/dL (70-110)
--- NOTE | 2020-08-16 06:00 | XRR_ITS ---
PROCEDURE INFORMATION: Exam: XR Chest, 1 View Exam date and time: 08/16/2020 5:30 AM Age: 64 years old Clinical indication: Shortness of breath; Prior surgery; Patient HX: S/P cabg day 2; Additional info: Pod #2 status post cabg TECHNIQUE: Imaging protocol: XR of the chest Views: 1 view. COMPARISON: CR XR chest 1V portable [id number] 08/15/2020 5:06 AM FINDINGS: Tubes, catheters and devices: Right central catheter tip terminates in the SVC. Right pulmonary Blackey-Rubén catheter has been removed. Stable left chest tube and mediastinal drains. Lungs: Increased perihilar and bibasilar opacities . There are pleural effusions. Findings can be seen with pulmonary edema. Pleural space: See Lungs finding. Heart/Mediastinum: Cardiomediastinal silhouette is stable. Bones/joints: Previous median sternotomy. XR/XR chest 1V portable [id number] IMPRESSION: Increased perihilar and bibasilar opacities. Bilateral pleural effusions. Findings can be seen with pulmonary edema.
--- NOTE | 2020-08-16 06:01 | PC.NURSE ---
Frank wraps removed from bilat legs, incisions to right and left upper leg and left inner knee clean, dry, and intact. Painted incisions x 3 with betadine. Assisted to chair at bedside. Tolerated well.
[2020-08-16] MEDS: levothyroxine 112 mcg Tablet PO (06:15)
[2020-08-16] MEDS: metoprolol tartrate 25 mg Tablet PO ×2 (06:15→10:25)
[2020-08-16 07:48] LABS: Glucose Point of Care 112 mg/dL (70-110)
--- NOTE | 2020-08-16 08:30 | PC.NURSE ---
Pt strong. Able to get p out of chair with ease. Pt ambulated 4 times around nurses station ICU with physical therapy.
[2020-08-16] MEDS: vancomycin 1,000 MG in sodium chloride 0.9% 250 ML 166.7 MG IV (08:58)
[2020-08-16] MEDS: chlorhexidine gluconate 0.12% Btl 473 mL 15 ML MUCOUS MEM ×2 (08:59→18:18)
[2020-08-16] MEDS: lisinopril 2.5 mg Tablet PO (08:59)
[2020-08-16] MEDS: aspirin 81 mg EC Tablet PO (08:59)
--- NOTE | 2020-08-16 10:05 | PM.PN ---
Subjective Subjective: Interval history: Postop day #2 status post CABG x3. Up in chair on rounds. Made several laps this morning without any difficulty. Intake and output is up at least over 3 L. She is volume expanded. She will need diuresis. There is an early right lower lobe pleural effusion versus early consolidation. Good use of incentive spirometry. Chest tube output 500 cc plus past 24 hours. This is becoming more serous. Vitals/I&O/Wt Last Vital Signs Temp 98.2 F 08/16/20 04:00 Pulse 100 08/16/20 09:41 Resp 16 08/16/20 09:41 BP 162/99 08/16/20 06:00 Pulse Ox 94 08/16/20 09:41 08/15/20 08/16/20 08/16/20 22:59 06:59 14:59 Intake Total 3660 / 5389.185 120 / 5509.185 1000 / 1000 Output Total 1515 / 1900 590 / 2490 Balance 2145 / 3489.185 -470 / 3019.185 1000 / 1000 Weight last 48 hrs Weight 146 lb 14.4 oz Weight 150 lb 8 oz Physical Exam Const: COMMON NORMALS: patient oriented x3 Chest: COMMONS NORMALS: normal inspection of the chest (Wound VAC dressing remains in place. Chest wall stable.) and normal palpation of entire chest wall Resp: COMMON NORMALS: normal respiratory effort, No retractions and No use of accessory muscles AUSCULTATION: diminished lung sounds on the right in the lower lung enciso Cardio: COMMON NORMALS: regular rate, regular rhythm, S1 normal heart sound present, No gallops present (Cardio) and No murmurs present (Cardio) RATE: regular rate RHYTHM: regular rhythm HEART SOUNDS: S1 normal heart sound present Extremity: OTHER: Trace of pretibial edema bilaterally. Neuro: COMMON NORMALS: patient oriented x3, no focal motor deficits and no sensory deficits noted Urinary Catheter Management^: Chaudhry: Cath Placed During This Visit: yes Reason for Continuing Indwelling Catheter: Accurate Measurement of Urinary Output in Critically Ill Patients Urinary Catheter Date of Insertion: 08/14/20 Urinary Catheter Time of Insertion: 08:00 Data : 08/16/20 04:04 08/16/20 04:04 A&P Assessment and plan (1) Status post aorto-coronary artery bypass graft: Postop day #2 status post CABG. Volume expansion. Plan: Metoprolol will be increased to 50 mg twice daily. Lasix 2 mg IV now. Lasix 2 mg p.o. at 6 PM CBC, BMP, magnesium level, chest x-ray in a.m. Hep-Lock IV fluids DC central line. Status: Acute Attestations Medical Necessity Statement*: Postop day #2 status post CABG Time Spent in Patient Care: 16 - 35 minutes Procedures Arterial Line Size (Gauge): 20 Coding Level of Care Code Acute Director Of Event Marketing for g Fwd Diagnoses Status post aorto-coronary artery bypass graft Z95.1
[2020-08-16] MEDS: FUROsemide 10 mg/mL SDV 2mL 20 MG IVP (10:26)
--- NOTE | 2020-08-16 13:00 | PC.NURSE ---
Dressings around chest tube changed. Central line removed.
--- NOTE | 2020-08-16 13:51 | P.PN_ITS ---
Subjective Subjective: Interval history: Patient is sitting in the chair and eating feeling much better. Stable vital camejo. Post CABG day 3 Medications: Reviewed: Yes Vitals/I&O/Wt Last Vital Signs Temp 98.2 F 08/16/20 04:00 Pulse 100 08/16/20 09:41 Resp 32 H 08/16/20 10:24 BP 162/99 08/16/20 06:00 Pulse Ox 99 08/16/20 10:24 08/15/20 08/16/20 08/16/20 22:59 06:59 14:59 Intake Total 3660 / 5389.185 120 / 5509.185 1000 / 1000 Output Total 1515 / 1900 590 / 2490 Balance 2145 / 3489.185 -470 / 3019.185 1000 / 1000 Weight last 48 hrs Weight 146 lb 14.4 oz Weight 150 lb 8 oz Physical Exam Narrative: EXAM NARRATIVE: GENERAL: Patient is alert, awake and oriented x3. Wearing jacket NECK: No jugular vein distension. HEENT: No cyanosis. No icterus. No pallor. HEART: Regular S1 and S2. No murmur, rub or gallop. LUNGS: Clear to auscultate bilaterally. ABDOMEN: Soft, nontender and nondistended. Positive bowel sounds. No guarding, rebound or tenderness. CENTRAL NERVOUS SYSTEM: Grossly nonfocal. EXTREMITIES: Lower extremities with 1+ edema bilaterally. Pulses palpable in the lower extremities, both dorsalis pedis and posterior tibial. Urinary Catheter Management^: Chaudhry: Cath Placed During This Visit: yes Reason for Continuing Indwelling Catheter: Accurate Measurement of Urinary Output in Critically Ill Patients Urinary Catheter Date of Insertion: 08/14/20 Urinary Catheter Time of Insertion: 08:00 Data : 08/16/20 04:04 08/16/20 04:04 A&P Assessment and plan (1) Status post aorto-coronary artery bypass graft: Medicine has been optimized by Dr. Solano agree with increasing metoprolol to 50 mg twice daily will increase CLAUDIA inhibitor lisinopril to 5 mg. Blood pressure is under control but continue aspirin statin Status: Acute (2) Uncontrolled hypertension: Increase CLAUDIA inhibitor to 5 mg. Status: Acute Attestations Medical Necessity Statement*: Require continuation hospitalization post CABG and ICU Procedures Arterial Line Size (Gauge): 20 Coding Level of Care Code Established Pt Acute Solvent Process Extractor Operator for Chg Fwd Patient Type Established History Detailed Exam Detailed Medical Decision Making Moderate Complexity Diagnoses Status post aorto-coronary artery bypass graft Z95.1 Uncontrolled hypertension I10
[2020-08-16] MEDS: FUROsemide 20 mg Tablet PO (18:18)
--- NOTE | 2020-08-16 18:37 | PC.NURSE ---
Shift summary: Pt has been up in chair most of the day. She has ambulated once, but it was 4 laps around unit. SHe only uses IS with prodding. She is pleasant. Heart rate sinus rhythm. Her blood pressure has climbed a little. B/P meds adjusted. Metoprolol now 50 mg BID and Lisinopril increased to 5mg in am. Her chest tube outputs are: 50 ml Mediastinal, and 165 ml Pleural. Her appetite is poor, she picks at her meals. She received Lasix IV earlier today . Urine output 2150ml of clear yellow urine. Chaudhry to stay in until tomorrow morning.
--- NOTE | 2020-08-16 19:07 | PC.NURSE ---
Report given to SASCHA Syed.
[2020-08-16] MEDS: atorvastatin 40 mg Tablet 20 MG PO (20:48)
[2020-08-16] MEDS: metoprolol tartrate 50 mg Tablet PO (20:49)
[2020-08-17] VITALS (20 sets, daily range): BP systolic 106–148; BP diastolic 71–97; PULSE 80–115; RESP 13–27; TEMP 36.6–37.2; O2SAT 93–96
[2020-08-17 04:35] LABS: Basophils # 0.1 10^3/uL (0.0-0.1); Basophils % 0.4 %; Eosinophils # 0.1 10^3/uL (0.0-0.8); Eosinophils % 0.5 %; Hematocrit 35.6 % (37.0-47.0); Hemoglobin 11.4 g/dL (11.5-15.3); Lymphocytes # 0.9 10^3/uL (0.8-4.8); Lymphocytes % 7.8 %; Mean Corpuscular Volume 87.5 fL (81-99); Mean Platelet Volume 11.6 fL (7.4-10.4); Monocytes # 1.2 10^3/uL (0.2-0.9); Monocytes % 9.7 %; Neutrophils # 9.61 10^3/uL (1.8-7.7); Neutrophils % 80.8 %; Nucleated Red Blood Cells % 0 %; Platelet Count 118 10^3/cmm (130-400); Red Blood Count 4.07 10^6/uL (4.1-5.3); Red Cell Distribution Width 13.3 % (12.1-15.1); White Blood Count 11.9 10^3/uL (4.0-10.0)
[2020-08-17 05:12] LABS: Anion Gap 11.4 (5-19); Blood Urea Nitrogen 14 mg/dL (8-23); Calcium 9.3 mg/dL (8.5-10.5); Carbon Dioxide 29 mmol/L (22-29); Chloride 101 mmol/L (98-107); Glomerular Filtration Rate 71.8 mL/min (90-130); Glucose 120 mg/dL (65-115); Magnesium 1.7 mg/dL (1.7-2.3); Osmolality Calculated 288 mOsm/kg (285-295); Potassium 3.4 mmol/L (3.5-5.1); Sodium 138 mmol/L (136-145)
[2020-08-17] MEDS: levothyroxine 112 mcg Tablet PO (05:24)
--- NOTE | 2020-08-17 06:00 | XRR_ITS ---
PROCEDURE INFORMATION: Exam: XR Chest, 1 View Exam date and time: 08/17/2020 5:21 AM Age: 64 years old Clinical indication: Dyspnea; Prior surgery; Surgery date: 3-7 days post-operative; Additional info: Pod #3 status post cabg TECHNIQUE: Imaging protocol: XR of the chest Views: 1 view. COMPARISON: CR XR chest 1V portable [id number] 08/16/2020 5:16 AM FINDINGS: Tubes, catheters and devices: There is stable positioning of a left thoracostomy tube. Stable mediastinal drain tubing is seen. Lungs: Unremarkable. No consolidation. Pleural space: There is a decrease in the pleural effusions compared with yesterday's examination. Heart/Mediastinum: Unremarkable. No cardiomegaly. Vasculature: There has been interval removal of the right internal jugular vein central venous line. Bones/joints: Unremarkable. Other findings: There appears to be an improvement in the patient's volume status compared with yesterday's examination as well. XR/XR chest 1V portable [id number] IMPRESSION: 1. Improving volume status compared with yesterday's examination. 2. Improving bilateral pleural effusions.
--- NOTE | 2020-08-17 06:16 | PC.NURSE ---
0515 - up out of bed, walked lap around unit. V/S remain stable, no distress noted. Returned to chair at bedside. Tolerated well.
[2020-08-17] MEDS: aspirin 81 mg EC Tablet PO (09:31)
[2020-08-17] MEDS: metoprolol tartrate 50 mg Tablet PO ×2 (09:31→21:01)
[2020-08-17] MEDS: lisinopril 5 mg Tablet PO (09:31)
[2020-08-17] MEDS: docusate sodium 100 mg Capsule PO ×2 (09:31→17:11)
[2020-08-17] MEDS: predniSONE 1 mg Tablet 4 MG PO (09:35)
[2020-08-17] MEDS: chlorhexidine gluconate 0.12% Btl 473 mL 15 ML MUCOUS MEM ×2 (09:36→17:11)
--- NOTE | 2020-08-17 10:04 | PM.PN ---
Subjective Subjective: Interval history: Postop day #3 status post CABG. Made 6 rounds in the ICU today. Diuresed yesterday for intake and output of -5 L. Chest tube output less than 100 cc past 12 hours. Potassium 3.4. Magnesium 1.7. Both to be replaced today. Pain under good control. I do note some continued mild tachycardia and some slight irregularity though still sinus rhythm. Blood pressure is normotensive. Chest x-ray with substantial improvement of bilateral pleural effusions. Cardiac silhouette stable. Mediastinum remains narrow. Support tubes in good position. Vitals/I&O/Wt Last Vital Signs Temp 98.9 F 08/17/20 08:00 Pulse 115 H 08/17/20 09:00 Resp 25 H 08/17/20 09:00 BP 128/80 08/17/20 09:00 Pulse Ox 93 08/17/20 09:00 08/16/20 08/17/20 08/17/20 22:59 06:59 14:59 Intake Total 350 / 1750 270 / 2020 120 / 120 Output Total 505 / 2365 4050 / 6415 200 / 200 Balance -155 / -615 -3780 / -4395 -80 / -80 Weight last 48 hrs Weight 136 lb 6.4 oz Weight 146 lb 14.4 oz Physical Exam Const: COMMON NORMALS: patient oriented x3 Chest: COMMONS NORMALS: normal inspection of the chest (Wound VAC dressing in place. Sternum stable to palpation.) and normal palpation of entire chest wall Cardio: COMMON NORMALS: regular rhythm (Slight irregularity, though sinus rhythm) and S1 normal heart sound present RATE: tachycardic (Mild) RHYTHM: regular rhythm (Slight irregularity, though sinus rhythm) HEART SOUNDS: S1 normal heart sound present Extremity: OTHER: Decreased peripheral edema Neuro: COMMON NORMALS: patient oriented x3, no focal motor deficits and no sensory deficits noted Urinary Catheter Management^: Chaudhry: Cath Placed During This Visit: yes Reason for Continuing Indwelling Catheter: Accurate Measurement of Urinary Output in Critically Ill Patients Urinary Catheter Date of Insertion: 08/14/20 Urinary Catheter Time of Insertion: 08:00 Data : 08/17/20 04:08 08/17/20 04:08 A&P Assessment and plan (1) Status post aorto-coronary artery bypass graft: Postop day #3. Diuresed well past 24 hours. Plan: Remove pleural and mediastinal drains. Amiodarone 200 mg p.o. twice daily Potassium and magnesium replacement CBC, BMP, chest x-ray in a.m. Status: Acute Attestations Medical Necessity Statement*: Postop day #3 status post CABG. Time Spent in Patient Care: 16 - 35 minutes Procedures Arterial Line Size (Gauge): 20 Coding Level of Care Code Acute Nutrient Management Specialist for g Fwd Diagnoses Status post aorto-coronary artery bypass graft Z95.1
[2020-08-17] MEDS: amiodarone 200 mg Tablet PO ×2 (11:23→17:11)
[2020-08-17] MEDS: potassium chloride premix 100 ML 25 MEQ IV (11:24)
[2020-08-17 11:31] LABS: Magnesium 1.9 mg/dL (1.7-2.3)
--- NOTE | 2020-08-17 12:24 | PC.NURSE ---
report called to Jaciel CAICEDO on [facility]. Will transport the patient after she is done with lunch.
--- NOTE | 2020-08-17 13:03 | PC.SOCIAL ---
IMM Update Pg. 2 of IMM updated and reviewed with patient. Copy provided.
--- NOTE | 2020-08-17 15:01 | P.PN_ITS ---
Subjective Subjective: Interval history: Patient is doing much better she was tachycardic for which patient has been started prophylactically on amiodarone by Dr. Solano this morning. Vitals/I&O/Wt Last Vital Signs Temp 97.8 F 08/17/20 13:09 Pulse 89 08/17/20 13:11 Resp 18 08/17/20 13:09 BP 106/71 08/17/20 13:09 Pulse Ox 93 08/17/20 13:09 08/17/20 08/17/20 08/17/20 06:59 14:59 22:59 Intake Total 2019 120 / 120 Output Total 4050 / 6415 475 / 475 Balance -3780 / -4395 -355 / -355 Weight last 48 hrs Weight 136 lb 6.4 oz Weight 146 lb 14.4 oz Physical Exam Narrative: EXAM NARRATIVE: GENERAL: Patient is alert, awake and oriented x3. NECK: No jugular vein distension. HEENT: No cyanosis. No icterus. No pallor. HEART: Regular S1 and S2. No murmur, rub or gallop. LUNGS: Clear to auscultate bilaterally. ABDOMEN: Soft, nontender and nondistended. Positive bowel sounds. No guarding, rebound or tenderness. CENTRAL NERVOUS SYSTEM: Grossly nonfocal. EXTREMITIES: Lower extremities without edema bilaterally. Urinary Catheter Management^: Chuadhry: Cath Placed During This Visit: yes, but has since been removed by the nurse Reason for Continuing Indwelling Catheter: Decision to DC Catheter Urinary Catheter Date of Insertion: 08/14/20 Urinary Catheter Time of Insertion: 08:00 Date Urinary Catheter Removed: 08/17/20 Time Urinary Catheter Discontinued: 11:40 Data : 08/17/20 04:08 08/17/20 04:08 A&P Assessment and plan (1) Status post aorto-coronary artery bypass graft: Status post CABG day 4 doing fine from a cardiovascular perspective patient chest tubes are out she has been transferred to second floor out of ICU unit. Amiodarone has been added continue aspirin statin and beta-wyatt Status: Acute (2) Uncontrolled hypertension: Well-controlled. Continue medicine Status: Acute Attestations Medical Necessity Statement*: Require continuation hospitalization for above defined care. Procedures Arterial Line Size (Gauge): 20 Coding Level of Care Code Established Pt Acute Coding Analyst for Chg Fwd Patient Type Established History Expanded Problem Focused Exam Expanded Problem Focused Medical Decision Making Moderate Complexity Diagnoses Status post aorto-coronary artery bypass graft Z95.1 Uncontrolled hypertension I10
--- NOTE | 2020-08-17 17:37 | PC.NURSE ---
SHIFT SUMMARY PATIENT HAS DONE WELL SINCE ARRIVING TO THE FLOOR FROM THE ICU. WOUND VAC IN PLACE. SURGICAL DRESSINGS CLEAN AND ASYMPTOMATIC. VITALS STABLE. HEART IN SINUS RHYTHM WITH A RATE FROM 80'S-100. LUNGS CLEAR. AMBULATING WELL. 600ML OF URINE OUTPUT AFTER WILHELM CATHETER REMOVAL. GOOD PO INTAKE. CURRENTLY SITTING IN THE CHAIR. NO COMPLAINTS.
[2020-08-17] MEDS: oxyCODONE-APAP 5-325 mg Tablet PO (20:58)
[2020-08-17] MEDS: atorvastatin 40 mg Tablet 20 MG PO (21:02)
[2020-08-18] VITALS (11 sets, daily range): BP systolic 112–162; BP diastolic 73–96; PULSE 72–98; RESP 12–18; TEMP 36.4–37.3; O2SAT 95–96; BMI 22.6
[2020-08-18] MEDS: oxyCODONE-APAP 5-325 mg Tablet PO ×2 (03:47→13:40)
[2020-08-18] MEDS: levothyroxine 112 mcg Tablet PO (05:09)
[2020-08-18 05:34] LABS: Basophils # 0.1 10^3/uL (0.0-0.1); Basophils % 0.7 %; Eosinophils # 0.2 10^3/uL (0.0-0.8); Hematocrit 30.3 % (37.0-47.0); Hemoglobin 9.8 g/dL (11.5-15.3); Lymphocytes % 11.5 %; Mean Corpuscular HGB Conc 32.3 g/dL (30.0-36.0); Mean Corpuscular Hemoglobin 28.4 pg (28.0-34.0); Mean Corpuscular Volume 87.8 fL (81-99); Mean Platelet Volume 11.6 fL (7.4-10.4); Monocytes # 0.9 10^3/uL (0.2-0.9); Monocytes % 10.2 %; Neutrophils # 6.76 10^3/uL (1.8-7.7); Neutrophils % 74.6 %; Nucleated Red Blood Cells % 0 %; Platelet Count 132 10^3/cmm (130-400); Red Blood Count 3.45 10^6/uL (4.1-5.3); Red Cell Distribution Width 13.5 % (12.1-15.1); White Blood Count 9.1 10^3/uL (4.0-10.0)
[2020-08-18 05:56] LABS: Anion Gap 10.6 (5-19); Blood Urea Nitrogen 18 mg/dL (8-23); Calcium 8.8 mg/dL (8.5-10.5); Carbon Dioxide 27 mmol/L (22-29); Chloride 107 mmol/L (98-107); Glomerular Filtration Rate 71.8 mL/min (90-130); Glucose 102 mg/dL (65-115); Osmolality Calculated 294 mOsm/kg (285-295); Potassium 3.6 mmol/L (3.5-5.1); Sodium 141 mmol/L (136-145)
--- NOTE | 2020-08-18 06:00 | XR_ITS ---
WS: [id number] XR chest 1V portable [id number] REASON FOR EXAM: Postop day #4 status post CABG; status post diuresis FINDINGS: The chest has not changed significantly compared to 08/17/2020. There are interstitial infiltrative c hanges in the lower lung enciso and bilateral pleural effusions. There is extensive reticulonodular c alcified granulomatous disease in the lung apices. XR/XR chest 1V portable [id number] IMPRESSION: Stable abnormal chest.
--- NOTE | 2020-08-18 06:58 | P.PN_ITS ---
Subjective Subjective: Interval history: Postop day #4 status post CABG x3. Transfer to [facility] yesterday evening. No events reported overnight. Remains in sinus rhythm. Heart rate under good control. Sternotomy discomfort under good control. Ms. Leon states she slept well last night. No bowel movement as of yet. Vitals/I&O/Wt Last Vital Signs Temp 98.6 F 08/18/20 04:00 Pulse 82 08/18/20 05:33 Resp 14 08/18/20 04:00 BP 136/81 08/18/20 04:00 Pulse Ox 96 08/18/20 04:00 08/17/20 08/17/20 08/18/20 14:59 22:59 06:59 Intake Total 120 / 120 240 / 360 Output Total 475 / 475 430 / 905 350 / 1255 Balance -355 / -355 -430 / -785 -110 / -895 Weight last 48 hrs Weight 136 lb 6.4 oz Weight 136 lb 6.4 oz Physical Exam Chest: COMMONS NORMALS: normal inspection of the chest (Wound VAC dressing remains in place. I will remove later today.) and normal palpation of entire chest wall Resp: COMMON NORMALS: normal respiratory effort, No use of accessory muscles and clear to auscultation bilaterally AUSCULTATION: clear to auscultation bilaterally Cardio: COMMON NORMALS: regular rate, regular rhythm and S1 normal heart sound present RATE: regular rate RHYTHM: regular rhythm HEART SOUNDS: S1 normal heart sound present Extremity: COMMON NORMALS: no clubbing, cyanosis or edema Urinary Catheter Management^: Chaudhry: Cath Placed During This Visit: yes, but has since been removed by the nurse Reason for Continuing Indwelling Catheter: Decision to DC Catheter Urinary Catheter Date of Insertion: 08/14/20 Urinary Catheter Time of Insertion: 08:00 Date Urinary Catheter Removed: 08/17/20 Time Urinary Catheter Discontinued: 11:40 Data : 08/18/20 05:08 08/18/20 05:08 A&P Assessment and plan (1) Status post aorto-coronary artery bypass graft: Postop day #4. I will remove wound VAC later today. Betasept shower tomorrow prior to discharge. Okay for discharge from surgical standpoint tomorrow. I will request home health. She will be staying with her sister in the early postop phase. Status: Acute Attestations Medical Necessity Statement*: Postop day #4 status post CABG x3 Time Spent in Patient Care: less than 15 minutes Procedures Arterial Line Size (Gauge): 20 Coding Level of Care Code Acute Business Records Manager for Chg Fwd Diagnoses Status post aorto-coronary artery bypass graft Z95.1
[2020-08-18] MEDS: metoprolol tartrate 50 mg Tablet PO ×2 (08:56→20:43)
[2020-08-18] MEDS: docusate sodium 100 mg Capsule PO ×2 (08:56→17:48)
[2020-08-18] MEDS: amiodarone 200 mg Tablet PO ×2 (08:57→17:48)
[2020-08-18] MEDS: aspirin 81 mg EC Tablet PO (08:57)
[2020-08-18] MEDS: lisinopril 5 mg Tablet PO (08:57)
[2020-08-18] MEDS: chlorhexidine gluconate 0.12% Btl 473 mL 15 ML MUCOUS MEM ×2 (09:01→17:48)
[2020-08-18] MEDS: predniSONE 1 mg Tablet 4 MG PO (09:01)
--- NOTE | 2020-08-18 15:02 | PM.PN ---
Subjective Subjective: Interval history: Feeling better and getting better day by day. She has walked around Medications: Reviewed: Yes Vitals/I&O/Wt Last Vital Signs Temp 98.2 F 08/18/20 11:36 Pulse 72 08/18/20 14:00 Resp 16 08/18/20 13:40 BP 114/74 08/18/20 11:36 Pulse Ox 95 08/18/20 11:36 08/18/20 08/18/20 08/18/20 06:59 14:59 22:59 Intake Total 240 / 360 691 / 691 Output Total 350 / 1255 450 / 450 Balance -110 / -895 241 / 241 Weight last 48 hrs Weight 136 lb 6.4 oz Weight 136 lb 6.4 oz Physical Exam Narrative: EXAM NARRATIVE: GENERAL: Patient is alert, awake and oriented x3. NECK: No jugular vein distension. HEENT: No cyanosis. No icterus. No pallor. HEART: Regular S1 and S2. No murmur, rub or gallop. LUNGS: Clear to auscultate bilaterally. ABDOMEN: Soft, nontender and nondistended. Positive bowel sounds. No guarding, rebound or tenderness. CENTRAL NERVOUS SYSTEM: Grossly nonfocal. EXTREMITIES: Lower extremities without edema bilaterally. Const: COMMON NORMALS: alert Resp: COMMON NORMALS: clear to auscultation bilaterally AUSCULTATION: clear to auscultation bilaterally Neuro: SENSORIUM/ORIENTATION: Yes alert Urinary Catheter Management^: Chaudhry: Cath Placed During This Visit: yes, but has since been removed by the nurse Reason for Continuing Indwelling Catheter: Decision to DC Catheter Urinary Catheter Date of Insertion: 08/14/20 Urinary Catheter Time of Insertion: 08:00 Date Urinary Catheter Removed: 08/17/20 Time Urinary Catheter Discontinued: 11:40 Data : 08/18/20 05:08 08/18/20 05:08 A&P Assessment and plan (1) Status post aorto-coronary artery bypass graft: Post CABG day 4 wound VAC will be removed today. Continue aspirin statin beta-wyatt amiodarone and CLAUDIA Status: Acute (2) Uncontrolled hypertension: Well-controlled. Continue current regimen Status: Acute Attestations Medical Necessity Statement*: Patient require continuation hospitalization for above defined care. Procedures Arterial Line Size (Gauge): 20 Coding Level of Care Code Established Pt Acute Extractor Tender Raw Stock for Chg Fwd Patient Type Established History Expanded Problem Focused Exam Expanded Problem Focused Medical Decision Making Moderate Complexity Diagnoses Status post aorto-coronary artery bypass graft Z95.1 Uncontrolled hypertension I10
--- NOTE | 2020-08-18 18:41 | PC.NURSE ---
called patient's daughter Thea and she said no one will be here tomorrow to pick her up. She said she will not be in the state until Tuesday.
[2020-08-18] MEDS: atorvastatin 40 mg Tablet 20 MG PO (20:43)
--- NOTE | 2020-08-18 21:11 | PC.NURSE ---
PT DAUGHTER- BRIE, CALLED AND STATED THAT KNOW ONE CALLED TO LET HER KNOW OF ANY PLANS ABOUT D/C HER MOM, THEREFORE SHE COULD NOT TAKE OFF WORK TO PICK HER MOTHER UP 08/19/2020 MORNING. BRIE IS REQUESTING TO HAVE SOMEONE CALL HER TOMORROW MORNING WITH AN UPDATE SO PLANS CAN BE ARRANGED TO PICK HER UP. THIS [employer]CRAFT PART ASSEMBLER WILL PASS THIS OFF TO DAYS SHIFT.
[2020-08-19 04:40] VITALS: BP 145/83; PULSE 82; RESP 18; TEMP 36.7; O2SAT 96
[2020-08-19] MEDS: levothyroxine 112 mcg Tablet PO (06:31)
[2020-08-19 08:00] VITALS: BP 148/83; PULSE 92; RESP 18; TEMP -12.9; TEMP 8.7; O2SAT 96
--- NOTE | 2020-08-19 08:12 | PM.DCS ---
Discharge Providers Date of Admission: 08/12/20 12:57 Date of Discharge: August 19, 2020 Attending Provider at Admission: Jose A Singh MD Attending Provider at Discharge: Jose A Singh MD Primary Care Provider: Poornima Salazar MD Diagnoses at Discharge Discharge Diagnosis (1) Status post aorto-coronary artery bypass graft: Status: Acute (2) Uncontrolled hypertension: Status: Acute Reason for Visit Reason for Visit: cardiac catherization Hospital Course Hospital Course Ms. Leon originally presented with increasing exertional angina and shortness of breath with exertion. Outpatient stress testing was suggestive of anterior wall ischemia. Subsequent left heart catheterization by Dr. Singh revealed a complex LAD diagonal stenosis as well as disease of a large ramus branch. Given the proximal, bifurcating, calcific lesion of the LAD/diagonal, patient was referred for surgery vascularization. She underwent CABG x3 on August 14. Postop day, she convalesced in the ICU where she remained hemodynamically stable. She was extubated several hours postop. She had decreasing chest tube output over the next 2 days which time chest tubes were discontinued. She progressed very rapidly. Bowel and bladder function returned to normal. She is tolerating a cardiac diet without difficulties. She was transferred to the [facility] where she continued to do quite well. Wound VAC dressing was removed yesterday. Sternotomy incision clean and dry. Sternum stable. Drain sites well approximated. She has no lower extremity edema. She is eager for discharge to home. She will be staying with her sister locally. Home health arrangements have been made. She will be discharged to home today in stable condition after clearance by Dr. Singh. Physical Exam Chest: COMMONS NORMALS: normal inspection of the chest (Incision intact. Drain sites well approximated. Chest wall stable.) and normal palpation of entire chest wall Resp: COMMON NORMALS: normal respiratory effort and clear to auscultation bilaterally EFFORT & INSPECTION: Yes able to speak in complete sentences and Yes symmetric chest movement AUSCULTATION: clear to auscultation bilaterally Cardio: COMMON NORMALS: regular rate, regular rhythm, S1 normal heart sound present and No murmurs present (Cardio) RATE: regular rate RHYTHM: regular rhythm HEART SOUNDS: S1 normal heart sound present Extremity: COMMON NORMALS: no clubbing, cyanosis or edema Urinary Catheter Management^: Chaudhry: Cath Placed During This Visit: yes, but has since been removed by the nurse Reason for Continuing Indwelling Catheter: Decision to DC Catheter Urinary Catheter Date of Insertion: 08/14/20 Urinary Catheter Time of Insertion: 08:00 Date Urinary Catheter Removed: 08/17/20 Time Urinary Catheter Discontinued: 11:40 Discharge Data Data Completed and Pending: Completed Studies During Hospitalization Category Date Time Status 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 Routin e Exams 08/12/20 07:30 Completed XR chest 1V rola ble [id number] Routine Exams 08/14/20 13:41 Completed XR chest 1V rola ble [id number] Routine Exams 08/15/20 06:00 Completed XR chest 1V orla ble [id number] Routine Exams 08/16/20 06:00 Completed XR chest 1V rola ble [id number] Routine Exams 08/17/20 06:00 Completed XR chest 1V rola ble [id number] Routine Exams 08/18/20 06:00 Completed XR chest 2V* [id number] Routine Exams 08/12/20 12:18 Completed CV echo complete* [id number] Routine Ultrasound 08/12/20 12:16 [place] [id number] Routi ne Ultrasound 08/12/20 10:54 Completed Vitals: Last Vital Signs Temp 8.7 F L 08/19/20 08:00 Pulse 92 08/19/20 08:00 Resp 18 08/19/20 08:00 BP 148/83 08/19/20 08:00 Pulse Ox 96 08/19/20 08:00 Discharge Plan Discharge Patient Disposition: Home Health Service Condition: Stable Prescriptions: New hydrocodone-acetaminophen 5-325 mg tablet 1 tab PO Q6H PRN (Reason: pain) Qty: 30 RF: 0 atorvastatin 40 mg Tablet 20 mg PO BEDTIME Qty: 30 RF: 5 amiodarone [Pacerone] 200 mg Tablet 200 mg PO BID Qty: 60 RF: 0 Continued oxycodone-acetaminophen 5-325 mg tablet 1 tab PO Q8H PRN (Reason: Pain) RF: 0 levothyroxine 112 mcg tablet 112 mcg PO DAILY RF: 0 prednisone 1 mg tablet 4 mg PO DAILY RF: 0 metoprolol succinate 25 mg tablet extended release 24 hr 12.5 mg PO DAILY Qty: 45 RF: 3 aspirin [Adult Low Dose Aspirin] 81 mg tablet,delayed release (DR/EC) 81 mg PO DAILY Qty: 90 RF: 3 amlodipine 2.5 mg tablet 2.5 mg PO DAILY Qty: 90 RF: 3 nitroglycerin [Nitrostat] 0.4 mg tablet, sublingual 0.4 mg sublingual Q5M PRN (Reason: chest pain) Qty: 25 RF: 6 Vitamin D3 50,000 units tablet 50,000 unit PO DAILY RF: 0 Discharge Orders: Discharge Order (Routine); Ordered 08/19/20 Ordered By: Oswald Solano Referrals: [facility] [Outside] Jose A Singh MD [Physician] - 1 week (Dr. Solano out for next 2 weeks) Discharge Diet: Cardiac Discharge Activity: Limit activity as instructed Activity Restrictions/Additional Instructions: No lifting, pulling, or pushing with upper extremities greater than 5 pounds for next 8 weeks May shower daily, though no tub baths or swimming x3 weeks. Report any redness, drainage, swelling, heat, or increased pain of incision. Report to home health nurse any increasing shortness of breath, increased chest pain, substantial weight gain, or leg swelling Discharge Attestations Time Spent in Discharge Care*: less than 30 min Specific Discharge Activities: educating patient, discussing with case sealer/social workers/dc planners, documenting/other paperwork and evaluating patient/reviewing data Status at Discharge: Cognitive status at discharge: cognitively intact, Functional status at discharge: independent ambulation Overall status at discharge: patient is progressing back to baseline Quality Metrics Clinical Quality Measures During this hospital stay, did patient experience: None Coding Level of Care Code Acute [employer] W[employer] Officer for Shae [place] Diagnoses Status post aorto-coronary artery bypass graft Z95.1 Uncontrolled hypertension I10
--- NOTE | 2020-08-19 08:23 | PC.NURSE ---
Mercerizer called patient's daughter last night at shift change and gave patient's daughter update. Patient's sister visited patient yesterday during visiting hours and said she can take patient home. Mercerizer called patient's daughter and sister this morning again and gave them update on patient. Daughter said she can not be here to pick patient up until 2200 tonight. Patient's sister said she can pick patient up earlier today if patient's daughter will let her. Sister said that patient's daughter can pick patient up from her house if she wants to.
[2020-08-19] MEDS: chlorhexidine gluconate 4% Btl 118 mL 1 APPLIC TOPICAL (09:20)
[2020-08-19] MEDS: predniSONE 1 mg Tablet 4 MG PO (09:21)
[2020-08-19] MEDS: lisinopril 5 mg Tablet PO (09:21)
[2020-08-19] MEDS: amiodarone 200 mg Tablet PO (09:21)
[2020-08-19] MEDS: ergocalciferol (vitamin D2) 50,000 Unit Capsule 50000 UNIT PO (09:21)
[2020-08-19] MEDS: docusate sodium 100 mg Capsule PO (09:22)
[2020-08-19] MEDS: metoprolol tartrate 50 mg Tablet PO (09:22)
[2020-08-19] MEDS: aspirin 81 mg EC Tablet PO (09:22)
[2020-08-19] MEDS: lactulose oral liq 20 gm/30 mL UDC PO (09:22)
[2020-08-19] MEDS: chlorhexidine gluconate 0.12% Btl 473 mL 15 ML MUCOUS MEM (09:23)
--- NOTE | 2020-08-19 10:40 | PC.SOCIAL ---
IMM Updated Updated pt on Pg 2 IMM. No questions voiced. Provided pt a copy. Signed, dated & timed copy in chart.
[2020-08-19] MEDS: HYDROcodone-acetaminophen 5-325 mg Tablet 1 TAB PO (10:52)
[2020-08-19 12:00] VITALS: BP 134/74; PULSE 72; RESP 18; TEMP 36.3; O2SAT 96
--- NOTE | 2020-08-19 12:07 | PC.NURSE ---
notified patient's sister that patient is ready for discharge. per sister, she will be here between 133 and 1400.
--- NOTE | 2020-08-19 14:31 | PC.NURSE ---
Patient was given colace and lactulose for constipation. Patient did not have BM before leaving the hospital. This nurse offered to give patient other PRN medications prior to leaving for constipation. Patient states she has had trouble in the past and uses enemas at home. Patient states she will use an enema once she arrives home. Discharge instructions were given to patient all questions answered. Patient was discharged at this time in stable condition with her sister.
[2020-08-19 14:34] VITALS: BP 134/74; PULSE 72; RESP 18; TEMP 36.3; O2SAT 96
--- NOTE | 2020-08-19 18:33 | P.PN_ITS ---
Subjective Subjective: Interval history: Patient took a bath she is feeling much better she has walked around she is stable vital camejo. She appeared to be in sinus rhythm. Medications: Reviewed: Yes Vitals/I&O/Wt Last Vital Signs Temp 97.3 F L 08/19/20 14:34 Pulse 72 08/19/20 14:34 Resp 18 08/19/20 14:34 BP 134/74 08/19/20 14:34 Pulse Ox 96 08/19/20 14:34 08/19/20 08/19/20 08/19/20 06:59 14:59 22:59 Output Total 300 / 900 600 / 600 Balance -300 / -69 -600 / -600 Weight last 48 hrs Weight 137 lb 3.2 oz Weight 136 lb 6.4 oz Physical Exam Narrative: EXAM NARRATIVE: GENERAL: Patient is alert, awake and oriented x3. NECK: No jugular vein distension. HEENT: No cyanosis. No icterus. No pallor. HEART: Regular S1 and S2. No murmur, rub or gallop. LUNGS: Clear to auscultate bilaterally. ABDOMEN: Soft, nontender and nondistended. Positive bowel sounds. No guarding, rebound or tenderness. CENTRAL NERVOUS SYSTEM: Grossly nonfocal. EXTREMITIES: Lower extremities without edema bilaterally. Const: COMMON NORMALS: alert Resp: COMMON NORMALS: clear to auscultation bilaterally AUSCULTATION: clear to auscultation bilaterally Neuro: SENSORIUM/ORIENTATION: Yes alert Urinary Catheter Management^: Chaudhry: Cath Placed During This Visit: yes, but has since been removed by the nurse Reason for Continuing Indwelling Catheter: Decision to DC Catheter Urinary Catheter Date of Insertion: 08/14/20 Urinary Catheter Time of Insertion: 08:00 Date Urinary Catheter Removed: 08/17/20 Time Urinary Catheter Discontinued: 11:40 Data : 08/18/20 05:08 08/18/20 05:08 A&P Assessment and plan (1) Status post aorto-coronary artery bypass graft: Post CABG day 5. Continue to optimize medicine continue aspirin statin beta-wyatt and CLAUDIA inhibitor. Continue physical therapy. Patient will be discharged home today. We will follow up on her in 1 week. Status: Acute (2) Uncontrolled hypertension: Well-controlled. Continue current regimen Status: Acute Attestations Medical Necessity Statement*: Patient require continuation hospitalization for above defined care. Procedures Arterial Line Size (Gauge): 20 Coding Level of Care Code Established Pt Acute Medical Intern for Chg Fwd Patient Type Established History Expanded Problem Focused Exam Expanded Problem Focused Medical Decision Making Moderate Complexity Diagnoses Status post aorto-coronary artery bypass graft Z95.1 Uncontrolled hypertension I10
== END 2020-08-19 14:35 | disposition home health service (06) | DRG 234 ==
LOC: CSU 12:58 → ICU 08-14 06:34 → MEDSURG 08-17 12:53
PROVIDERS: Thoracic Surgery (Cardiothoracic Vascular Surgery); Admitting Provider Internal Medicine Cardiovascular Disease; PCP Family Medicine; Visit Provider Internal Medicine Cardiovascular Disease
PROC: 4A023N7 Measurement of Cardiac Sampling and Pressure, Left Heart, Percutaneous Approach (ICD-10-PCS; principal; 2020-08-12 08:30)
PROC: 021109W Bypass Coronary Artery, Two Arteries from Aorta with Autologous Venous Tissue, Open Approach (ICD-10-PCS; principal; 2020-08-14 08:00)
DX: I25.10 Atherosclerotic heart disease of native coronary artery without angina pectoris (principal); I10 Essential (primary) hypertension; Z79.82 Long term (current) use of aspirin; M06.9 Rheumatoid arthritis, unspecified
CPT/HCPCS: 12345; 36415; 36416; 36430; 36592; 36600; 71045; 71046; 80048; 80051; 80076; 81001; 82330; 82803; 82805; 82947; 82962; 83605; 83735; 84439; 84443; 85025; 85610; 85730; 86850; 86900; 86920; 87635; 93005; 93306; 93452; 93970; 94002; 94640; 94799; 96375; 97110; 97116; 97161; 97166; 97530; 97535; C1769; C1887; C1894; J0171; J1170; J1644; J1815; J1940; J2250; J2270; J2370; J2440; J2704; J2930; J3010; J3370; J3475; J3480; J3490; J7030; J7040; J7050; J7512; P9016; P9041; Q0163; Q9967

== ENCOUNTER 2021-08-19 10:12 | Outpatient (CLI) | payer MEDICARE, SELFPAY ==
--- NOTE | 2021-08-19 10:18 | MM_ITS ---
WS: [id number] BILATERAL DIGITAL SCREENING MAMMOGRAPHY WITH CAD CLINICAL INFORMATION: SCREENING HISTORY: Screening mammogram. No current complaints. COMPARISON: TECHNIQUE: Bilateral CC and MLO views. FINDINGS: The breasts are composed of heterogeneous fibroglandular density tissue, which can limit the detectio n of small underlying mass lesions. Vascular calcification. Stable punctate calcifications. No suspic ious mass, asymmetry, calcifications, or architectural distortion. No evidence of malignancy. MM/[place] [id number] IMPRESSION: BI-RADS: 2-Benign FOLLOW UP: 1 Year Follow-up Recommend return to annual screening mammography.
== END 2021-08-19 10:13 | disposition home or self-care (01) ==
LOC: RADSHAW 10:14
PROVIDERS: PCP Family Medicine; Visit Provider Family Medicine
DX: Z12.31 Encounter for screening mammogram for malignant neoplasm of breast (principal)
CPT/HCPCS: 77067

== ENCOUNTER 2023-09-07 13:42 | Outpatient (CLI) | payer MEDICARE, SELFPAY ==
--- NOTE | 2023-09-07 13:47 | MM_ITS ---
WS: [id number] Bilateral screening 3D tomosynthesis digital mammogram, 09/07/2023 Clinical Data: SCREENING Comparison: 08/19/2021, 08/16/2019, 09/26/2017, 04/03/2013, 03/04/2006. Findings: The breast parenchymal pattern shows heterogeneous tissue. No spiculated masses or clustered calcific ations are seen. There are no secondary signs of carcinoma. There are vascular calcifications and sma ll punctate calcifications which have not changed. Impression: 1. Negative bilateral mammogram unchanged. 2. Recommend annual screening mammograms. MM/[place] [id number] BIRADS: 1-Negative FOLLOW UP: 1 Year Follow-up The CAD design checker was used.
== END 2023-09-07 13:43 | disposition home or self-care (01) ==
PROVIDERS: PCP Family Medicine; Visit Provider Family Medicine
DX: Z12.31 Encounter for screening mammogram for malignant neoplasm of breast (principal)
CPT/HCPCS: 77063; 77067

== ENCOUNTER 2024-06-04 12:07 | Outpatient (CLI) | payer MEDICARE, SELFPAY ==
--- NOTE | 2024-06-04 14:01 | XR_ITS ---
WS: [id number] Exam: XR cervical spine 3V* [id number] Date/Time of Exam: 06/04/2024 2:15 PM Reason For Exam: ACUTE ONSET, CHA HAND WEAKNESS No acute fracture or dislocation. 3 mm degenerative anterolisthesis of C4 on C5. Facet DJD at all lev els. Degenerative disc narrowing from C4-C7. There is straightening and reversal of the normal cervic al lordosis. Normal paraspinal soft tissues. The odontoid is intact. XR/XR cervical spine 3V* [id number] IMPRESSION: 1. 3 mm degenerative anterolisthesis of C4 on C5. 2. Facet DJD and degenerative disc changes as detailed above. Straightening wit h reversal of the normal cervical lordosis.
--- NOTE | 2024-06-04 14:01 | CT_ITS ---
WS: [id number] CT HEAD NONCONTRAST HISTORY: LEFT HAND WEAKNESS/ CHA ARM BURNING/?L CVA TECHNIQUE: Contiguous axial imaging performed through the brain in 3.0 mm imaging. Bone and soft tiss ue windows. Sagittal and coronal reformats reviewed. All CT scans at [facility] use at least one of these dose optimization techniques: automated exposure control; mA and/or kV adjustment per pa tient size (includes targeted exams where dose is matched to clinical indication); or iterative recon struction. DLP: 962.85 mGy.cm COMPARISON: Neck CT 08/31/2018 No acute intracranial hemorrhage, midline shift or mass effect. Mild atrophy and mild small vessel disease. No acute infarcts are identified. Posterior fossa is nega tive. Ventricles: Normal size with no hydrocephalus. No inferior displacement of cerebellar tonsils. Paranasal sinuses: As visualized are clear. Mastoid air cells: Well pneumatized. Calvarium and scalp: Skull is intact with no soft tissue edema or swelling. Although only partially imaged at the skull base I suspect there is a RIGHT parotid mass measuring 1. 6 x 2.4 cm. This is incompletely visualized but there is a change in attenuation involving the superf icial and deep portions of the parotid gland. CT/CT head wo con* [id number] IMPRESSION: 1. No acute intracranial hemorrhage or edema. 2. RIGHT parotid mass incompletely visualized. There is a prior CT from 2017 which also described a RIGHT parotid mass. This may have been previously e valuated. If this has not been previously evaluated consider follow-up neck CT with IV contrast.
== END 2024-06-04 12:08 | disposition home or self-care (01) ==
PROVIDERS: PCP Family Medicine; Visit Provider Family Medicine
DX: D11.0 Benign neoplasm of parotid gland (principal); M43.12 Spondylolisthesis, cervical region; M50.30 Other cervical disc degeneration, unspecified cervical region; M48.02 Spinal stenosis, cervical region; R29.898 Other symptoms and signs involving the musculoskeletal system
CPT/HCPCS: 70450; 72040

== ENCOUNTER 2024-09-24 08:15 | Emergency (ER) | payer MEDICARE, SELFPAY ==
[2024-09-24] VITALS (7 sets, daily range): BP systolic 141–217; BP diastolic 81–147; PULSE 68–141; RESP 17; TEMP 37.1; O2SAT 97–99; BMI 18.4
--- NOTE | 2024-09-24 08:24 | ECG_ITS ---
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
--- NOTE | 2024-09-24 08:32 | XRR_ITS ---
PROCEDURE INFORMATION: Exam: XR Chest Exam date and time: 09/24/2024 8:44 AM Age: 68 years old Clinical indication: Cough and dyspnea and shortness of breath; Prior surgery; Surgery date: 6+ months; Surgery type: Triple bypass; Additional info: Dyspnea/cough TECHNIQUE: Imaging protocol: Radiologic exam of the chest. Views: 1 view. COMPARISON: CR XR chest 1V portable [id number] 08/18/2020 6:22 AM FINDINGS: Tubes, catheters and devices: Surgical clips overlie the mediastinum. Lungs: Pulmonary emphysema identified within the lungs. Pleural and lung parenchymal linear scarring identified within bilateral apices. Linear density identified within bilateral lungs. Pleural spaces: See Lungs finding. Heart/Mediastinum: Post surgical changes overlie the mediastinum, suggesting previous CABG. Sternotomy wires, hardware are present. Vasculature: Severe diffuse atherosclerotic arterial vascular wall calcifications are demonstrated. Bones/joints: Diffusely decreased bone density. Generalized bony degenerative changes. XR/XR chest 1V portable [id number] IMPRESSION: 1. Pulmonary emphysema. 2. Linear bilateral chest pulmonary atelectasis, or scarring. 3. Degenerative and postsurgical changes are demonstrated, as described above.
--- NOTE | 2024-09-24 08:35 | W.ED.CHESTPA ---
HPI - Chest Pain General: Chief Complaint: Chest Pain Stated Complaint: cp Time Seen by Provider: 09/24/24 08:32 History of Present Illness: 68-year-old female who presents to the emergency room with complaint of chest pains been going on for about the last 5 days. She had had carpal tunnel surgery last week and began somewhat after that she has intermittent chest discomfort some mild shortness of breath but none at this time. No cough fever sweats or chills. She has noticed her blood pressure has been running high as well Associated symptoms: Deny abdominal pain, dyspnea or fever(s) Related Data Home Medications Medication Instructions Recorded Confirmed oxycodone-acetaminophen 5 mg-325 1 tab PO Q8H PRN Pain 08/06/20 09/24/24 mg tablet hydrocodone 5 mg-acetaminophen 325 2 tab PO Q6H PRN Pain 09/24/24 09/24/24 mg tablet naproxen sodium 220 mg capsule 440 mg PO Q12H PRN Pain 09/24/24 09/24/24 prednisone 1 mg tablet 4 mg PO DAILY 09/24/24 09/24/24 thyroid (pork) 90 mg tablet 90 mg PO DAILY 09/24/24 09/24/24 ([place] Thyroid) vitamin B12 1,000 mcg-folic acid 1 carmen sublingual DAILY 09/24/24 09/24/24 400 mcg sublingual lozenge vitamin D3 125 mcg (5,000 1 cap PO DAILY 09/24/24 09/24/24 unit)-vitamin K2 180 mcg capsule Previous Rx's Medication Instructions Recorded nitroglycerin 0.4 mg sublingual 0.4 mg sublingual Q5M PRN chest 08/06/20 tablet (Nitrostat) pain #25 tabs aspirin 81 mg tablet,delayed 81 mg PO DAILY #90 tabs 08/27/20 release (Adult Low Dose Aspirin) losartan 25 mg tablet 25 mg PO DAILY #90 tabs 04/17/21 rosuvastatin 20 mg tablet 20 mg PO DAILY #90 tabs 04/17/21 hydrocodone 5 mg-acetaminophen 325 1 tab PO Q6H PRN pain #15 tabs 09/24/24 mg tablet metoprolol succinate 25 mg 25 mg PO DAILY #30 tabs 09/24/24 tablet,extended release 24 hr (Toprol XL) valacyclovir 1 gram tablet 1,000 mg PO TID 7 days #21 tabs 09/24/24 Allergies Allergy/AdvReac Type Severity Reaction Status Date / Time clarithromycin [From Biaxin] Allergy unknown Verified 09/24/24 08:34 levofloxacin [From Levaquin] Allergy unknown Verified 09/24/24 08:34 Penicillins Allergy unknown Verified 09/24/24 08:34 Sulfa (Sulfonamide Allergy unknown Verified 09/24/24 08:34 Antibiotics) Review of Systems Const: Denies: fever(s) or chills Card: Denies: chest pain Resp: Denies: dyspnea GI: Denies: abdominal pain : Denies: dysuria, urinary frequency or urinary urgency Musc: Denies: neck pain or back pain Skin/Breast: Denies: rash PFSH ED PFSH: Medical History Hyperlipidemia Rheumatoid arthritis CKD (chronic kidney disease) HTN (hypertension) Hypothyroidism Osteoporosis Coronary arteriosclerosis in [place] artery Uncontrolled hypertension Abnormal stress test Surgical History H/O section Family History Sister Rheumatoid arthritis Social History Smoking and tobacco/nicotine status: never used tobacco/nicotine Alcohol intake: current Alcohol intake frequency: other Substance/Drug Use: never Physical Exam Const: COMMON NORMALS: no acute distress GENERAL APPEARANCE: cooperative and comfortable ORIENTATION/CONSCIOUSNESS: Yes awake, Yes oriented to person, Yes oriented to place and Yes oriented to time HENMT: COMMON NORMALS: normocephalic, atraumatic and hearing grossly normal bilaterally HEAD & SCALP: normocephalic and atraumatic Resp: COMMON NORMALS: normal respiratory effort, No retractions, No use of accessory muscles and clear to auscultation bilaterally AUSCULTATION: clear to auscultation bilaterally Cardio: COMMON NORMALS: regular rhythm and No murmurs present (Cardio) RATE: tachycardic RHYTHM: regular rhythm GI: COMMON NORMALS: Soft to palpation and No hepatosplenomegaly present AUSCULTATION: Yes normoactive bowel sounds PALPATION: Yes Soft to palpation, No Tenderness to palpation present (GI), No Guarding due to palpation present (GI) and Yes No hepatosplenomegaly present Extremity: COMMON NORMALS: normal to inspection, capillary refill normal, no clubbing, cyanosis or edema, no calf tenderness and no pedal edema Neuro: SENSORIUM/ORIENTATION: Yes oriented to person, Yes oriented to place and Yes oriented to time Skin: COMMON NORMALS: no rashes or lesions noted GENERAL SKIN EXAM: no rashes or lesions noted Course Vital Signs: Vital signs: Vital Signs Temperature 98.7 F 09/24/24 08:26 Pulse Rate 87 09/24/24 13:32 Respiratory Rate 17 09/24/24 08:26 Blood Pressure 173/107 09/24/24 13:32 Pulse Oximetry 98 09/24/24 13:32 Oxygen Delivery Me thod Room Air 09/24/24 12:15 MDM - Chest Pain Medical Decision Making Labs and imaging unremarkable CT of the chest negative. On exam we did note patient has a varicella-zoster in approximately the T5-6 dermatome on the right. Early vesicle formation.. Cardiac enzymes and EKG were negative no findings on the CTA of the chest. Will discharge patient home on valacyclovir. Additionally gave pain medication. And will add metoprolol 25 mg XL once daily. Follow-up with primary care within the next week. Discussed usual course and expectations of varicella Medical Records I reviewed the patient's medical records. Lab Data I reviewed the patient's lab results. 09/24/24 08:50 09/24/24 08:50 Radiology Impressions Chest X-Ray 09/24/24 08:32 IMPRESSION: 1. Pulmonary emphysema. 2. Linear bilateral chest pulmonary atelectasis, or scarring. 3. Degenerative and postsurgical changes are demonstrated, as described above. Chest CTA 09/24/24 12:20 IMPRESSION: 1. No pulmonary embolism. 2. Prior CABG. 3. Mild atherosclerosis aorta. 4. No RIGHT heart strain. 5. No pneumonia. Laboratory Results WBC 6.61 10^3/uL (3.29-11.43) 09/24/24 08:50 RBC 6.28 10^6/uL (3.85-5.65) H 09/24/24 08:50 Hgb 16.80 g/dL (11.27-16.99) 09/24/24 08:50 Hct 50.6 % (36-47) H 09/24/24 08:50 MCV 80.6 fl (85-98) L 09/24/24 08:50 MCH 26.8 pg (27-33) L 09/24/24 08:50 MCHC 33.2 g/dL (30-55) 09/24/24 08:50 RDW 12.6 % (12.1-15.1) 09/24/24 08:50 Plt Count 154 10^3/cmm (157-399) L 09/24/24 08:50 MPV 10.2 fL (7.4-10.4) 09/24/24 08:50 Neut % (Auto) 68.0 % 09/24/24 08:50 Lymph % (Auto) 17.7 % 09/24/24 08:50 Taylor % (Auto) 11.6 % 09/24/24 08:50 Eos % (Auto) 1.8 % 09/24/24 08:50 Baso % (Auto) 0.6 % 09/24/24 08:50 Neut # (Auto) 4.49 10^3/uL (1.8-7.7) 09/24/24 08:50 Lymph # (Auto) 1.2 10^3/uL (0.8-4.8) 09/24/24 08:50 Taylor # (Auto) 0.8 10^3/uL (0.2-0.9) 09/24/24 08:50 Eos # (Auto) 0.1 10^3/uL (0.0-0.8) 09/24/24 08:50 Baso # (Auto) 0.0 10^3/uL (0.0-0.1) 09/24/24 08:50 Nucleated RBC % (auto) 0 % 09/24/24 08:50 Nucleated RBCs # 0.0 /100WBC 09/24/24 08:50 Sodium 141 mmol/L (136-145) 09/24/24 08:50 Potassium 3.6 mmol/L (3.5-5.1) 09/24/24 08:50 Chloride 103 mmol/L (98-107) 09/24/24 08:50 Carbon Dioxide 26 mmol/L (22-29) 09/24/24 08:50 Anion Gap 15.6 (5-19) 09/24/24 08:50 BUN 22 mg/dL (8-23) 09/24/24 08:50 Creatinine 1.1 mg/dL (0.5-0.9) H 09/24/24 08:50 GFR Calculation 49.1 mL/min (90-130) L 09/24/24 08:50 Glucose 96 mg/dL (65-115) 09/24/24 08:50 Calculated Osmolality 295 mOsm/kg (285-295) 09/24/24 08:50 Lactic Acid 1.1 mmol/L (0.5-2.2) 09/24/24 08:50 Calcium 10.7 mg/dL (8.5-10.5) H 09/24/24 08:50 Total Bilirubin 0.9 mg/dL (0.15-1.2) 09/24/24 08:50 AST 18 U/L (0-32) 09/24/24 08:50 ALT 10 U/L (0-33) 09/24/24 08:50 Alkaline Phosphatase 79 U/L (35-105) 09/24/24 08:50 Troponin T Baseline 11 ng/L (0-10) H 09/24/24 08:50 Troponin T 120 Minute 10.83 ng/L (0-10) H 09/24/24 11:25 Delta Troponin T -0.17 ABS# (0-10) L 09/24/24 11:25 Total Protein 6.8 g/dL (6.6-8.7) 09/24/24 08:50 Albumin 4.5 g/dL (3.5-5.2) 09/24/24 08:50 Globulin 2.3 g/dL (1.3-4.6) 09/24/24 08:50 Lipase 38 U/L (13-60) 09/24/24 08:50 Urine Color Yellow (Yellow) 09/24/24 10:58 Urine Appearance Clear (CLEAR) 09/24/24 10:58 Urine pH 7.0 (5-7) 09/24/24 10:58 Ur Specific [place] 1.011 (1.005-1.030) 09/24/24 10:58 Urine Protein Negative (Negative) 09/24/24 10:58 Urine Glucose (UA) Negative (Normal) 09/24/24 10:58 Urine Ketones Negative (Negative) 09/24/24 10:58 Urine Blood 1+ (Negative) A 09/24/24 10:58 Urine Nitrate Negative (Negative) 09/24/24 10:58 Urine Bilirubin Negative (Negative) 09/24/24 10:58 Urine Urobilinogen 1.0 mg/dL (Negative) 09/24/24 10:58 Ur Leukocyte Esterase Trace (Negative) A 09/24/24 10:58 Urine RBC 3-5 /hpf (0-2) 09/24/24 10:58 Urine WBC 0-5 /hpf (0-5) 09/24/24 10:58 Ur Squamous Epith Cells 0-5 /hpf (0-5) 09/24/24 10:58 Amorphous Sediment Not Reportable 09/24/24 10:58 Urine Bacteria None seen /hpf (NONE) 09/24/24 10:58 Hyaline Casts 0.81 /lpf 09/24/24 10:58 Coronavirus (PCR) Negative (Negative) 09/24/24 09:25 Influenza A (PCR) Negative (Negative) 09/24/24 09:25 Influenza Type B (PCR) Negative (Negative) 09/24/24 09:25 RSV (PCR) Negative (Negative) 09/24/24 09:25 All radiology interpretation(s) finalized by discharge Discharge Plan Discharge Patient Disposition: Home Clinical Impression: Varicella, Uncontrolled hypertension, Tachycardia Condition: Stable Prescriptions: New metoprolol succinate [Toprol XL] 25 mg tablet extended release 24 hr 25 mg PO DAILY Qty: 30 0RF valacyclovir 1 gram tablet 1,000 mg PO TID 7 Days Qty: 21 0RF hydrocodone-acetaminophen 5-325 mg tablet 1 tab PO Q6H PRN (Reason: pain) Qty: 15 0RF No Action oxycodone-acetaminophen 5-325 mg tablet 1 tab PO Q8H PRN (Reason: Pain) nitroglycerin [Nitrostat] 0.4 mg tablet, sublingual 0.4 mg sublingual Q5M PRN (Reason: chest pain) Qty: 25 6RF Rx Instructions: do not exceed 3 doses per episode Adult Low Dose Aspirin 81 mg tablet,delayed release (DR/EC) 81 mg PO DAILY Qty: 90 3RF losartan 25 mg tablet 25 mg PO DAILY Qty: 90 4RF rosuvastatin 20 mg tablet 20 mg PO DAILY Qty: 90 4RF prednisone 1 mg tablet 4 mg PO DAILY thyroid (pork) [[place] Thyroid] 90 mg tablet 90 mg PO DAILY vitamin N85-lwptm acid 1,000-400 mcg Lozenge 1 carmen SUBLINGUAL DAILY vitamin D3-vitamin K2 125 mcg (5,000 unit)-180 mcg Capsule 1 cap PO DAILY hydrocodone-acetaminophen 5-325 mg tablet 2 tab PO Q6H PRN (Reason: Pain) naproxen sodium 220 mg Capsule 440 mg PO Q12H PRN (Reason: Pain) Discharge Orders: Discharge ED (Routine); Ordered 09/24/24 Ordered By: Hu Eduardo Referrals: Poornima Salazar MD [Primary Care Provider] - Discharge Diet: Usual diet Discharge Activity: Increase activity as tolerated Patient Instructions: Shingles (ED), Opioid Safety, Pain Management Activity Restrictions/Additional Instructions: Thank you for choosing [facility] for your healthcare needs today. It is very important that you follow up as instructed or that you return to the Emergency Department should you have concerns or if your condition changes or worsens in any way. You were seen in the emergency room with complaints of chest discomfort. On arrival you had elevated heart rate. Your blood pressure was also elevated your blood pressure and heart rate responded well to medications given. On exam you are found to have varicella zoster (shingles). Evaluation for possible blood clot was negative. Will discharge you home on valacyclovir 3 times a day for 1 week. Also started on Toprol-XL 25 mg once daily. Follow-up with your doctor in 1 week for evaluation of your blood pressure. Finally you are given pain medications to help manage the zoster. Your primary care doctor can continue to manage discomfort from the zoster at your follow-up. Coding Level of Care Code ED Dictating Transcribing Machine Servicer for Shae Colunga
[2024-09-24] MEDS: labetalol 5 mg/mL SDV 20mL 10 MG IVP (08:54)
[2024-09-24 08:59] LABS: Basophils % 0.6 %; Eosinophils # 0.1 10^3/uL (0.0-0.8); Eosinophils % 1.8 %; Hematocrit 50.6 % (36-47); Lymphocytes # 1.2 10^3/uL (0.8-4.8); Lymphocytes % 17.7 %; Mean Corpuscular HGB Conc 33.2 g/dL (30-55); Mean Corpuscular Hemoglobin 26.8 pg (27-33); Mean Corpuscular Volume 80.6 fl (85-98); Mean Platelet Volume 10.2 fL (7.4-10.4); Monocytes # 0.8 10^3/uL (0.2-0.9); Monocytes % 11.6 %; Neutrophils # 4.49 10^3/uL (1.8-7.7); Nucleated Red Blood Cells % 0 %; Platelet Count 154 10^3/cmm (157-399); Red Blood Count 6.28 10^6/uL (3.85-5.65); Red Cell Distribution Width 12.6 % (12.1-15.1); White Blood Count 6.61 10^3/uL (3.29-11.43)
[2024-09-24 09:17] LABS: Lactic Sepsis W/Reflex 1.1 mmol/L (0.5-2.2)
[2024-09-24 09:18] LABS: Alanine Aminotransferase 10 U/L (0-33); Albumin Level 4.5 g/dL (3.5-5.2); Alkaline Phosphatase 79 U/L (35-105); Anion Gap 15.6 (5-19); Aspartate Amino Transferase 18 U/L (0-32); Blood Urea Nitrogen 22 mg/dL (8-23); Calcium 10.7 mg/dL (8.5-10.5); Carbon Dioxide 26 mmol/L (22-29); Chloride 103 mmol/L (98-107); Creatinine Clr Calc Pharmacy 40.8233; Globulin 2.3 g/dL (1.3-4.6); Glomerular Filtration Rate 49.1 mL/min (90-130); Glucose 96 mg/dL (65-115); Lipase 38 U/L (13-60); Osmolality Calculated 295 mOsm/kg (285-295); Potassium 3.6 mmol/L (3.5-5.1); Sodium 141 mmol/L (136-145); Total Bilirubin 0.9 mg/dL (0.15-1.2); Total Protein 6.8 g/dL (6.6-8.7)
[2024-09-24 09:20] LABS: Troponin(5th) Baseline 11 ng/L (0-10)
--- NOTE | 2024-09-24 10:10 | ECG_ITS ---
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
[2024-09-24 10:25] LABS: Covid PCR NEGATIVE (Negative); Influenza A NEGATIVE (Negative); Influenza B NEGATIVE (Negative); Respiratory Syncytial Virus Ce NEGATIVE (Negative)
[2024-09-24 11:14] LABS: Bilirubin Urine Negative (Negative); Blood Urine 1+ (Negative); Glucose Urine UA Negative (Normal); Ketones Urine Negative (Negative); Leukocyte Esterase Urine Trace (Negative); Nitrate Urine Negative (Negative); Protein Urine Negative (Negative); Specific Gravity, Urine 1.011 (1.005-1.030); Urine Appearance Clear (CLEAR); Urine Color Yellow (Yellow)
[2024-09-24 11:18] LABS: Add Urine Microscopic? YES; Bacteria Urine None Seen /hpf; Hyaline Casts Urine 0.81 /lpf; Squamous Epithelial Cell Urine 0-5 /hpf (0-5); WBC Urine 0-5 /hpf (0-5)
[2024-09-24 11:53] LABS: Troponin 5 2HR 10.83 ng/L (0-10)
[2024-09-24 11:54] LABS: Troponin 5 2HR Delta -0.17 ABS# (0-10)
--- NOTE | 2024-09-24 12:20 | CT_ITS ---
WS: [id number] CT CHEST ANGIOGRAPHY WITH REFORMATS HISTORY: Tachycardia chest pain TECHNIQUE: Contiguous axial images are obtained through the chest during arterial injection of intrav enous contrast. Images are reconstructed to evaluate the pulmonary arteries. MIP imaging also reviewe d. All CT scans at [facility] use at least one of these dose optimization techniques: automat ed exposure control; mA and/or kV adjustment per patient size (includes targeted exams where dose is matched to clinical indication); or iterative reconstruction. CONTRAST: Omnipaque 350; 100 mL IV. DLP: 155.43 mGy.cm COMPARISON: None available. No pulmonary embolism. Normal size pulmonary artery. Mild atherosclerosis thoracic aorta. Heart size is normal. No RIGHT heart strain. No mediastinal or hilar adenopathy. Prior CABG. There are a few scattered pulmonary granulomata. No pulmonary mass or nodule. No pericard ial or pleural effusions. No adrenal mass. Heavy dense calcification splenic artery. Schmorl's node superior endplate of L2. CT/CT angio chest PE protcl [id number] IMPRESSION: 1. No pulmonary embolism. 2. Prior CABG. 3. Mild atherosclerosis aorta. 4. No RIGHT heart strain. 5. No pneumonia.
[2024-09-24] MEDS: iohexol 350 mg/mL 500 mL Btl (per mL) IV (12:38)
== END 2024-09-24 13:34 | disposition home or self-care (01) ==
PROVIDERS: Emergency Provider Family Medicine; PCP Family Medicine
DX: B01.9 Varicella without complication (principal); R00.0 Tachycardia, unspecified; Z11.52 Encounter for screening for COVID-19; I12.9 Hypertensive chronic kidney disease with stage 1 through stage 4 chronic kidney disease, or unspecified chronic kidney disease; N18.9 Chronic kidney disease, unspecified; E78.5 Hyperlipidemia, unspecified
CPT/HCPCS: 36415; 71045; 71275; 80053; 81001; 83605; 83690; 84484; 85025; 87040; 87637; 93005; 96374; 99285; J3490